=== PATIENT | female | born 1950 | race Caucasian/White ===

== ENCOUNTER 2018-01-01 11:07 | Outpatient (CLI) | payer MEDICARE, BC ==
--- NOTE | 2018-01-06 12:58 | Mammography Report ---
DIGITAL SCREENING MAMMOGRAM: 01/01/2018 CLINICAL INDICATION: A 67-year-old nulliparous patient, for screening. COMPARISON: 10/2015, 10/2014, 10/2013, 10/2012. TECHNIQUE: Routine CC and MLO projections were obtained of the breasts. FINDINGS: The breasts again demonstrate heterogeneously dense fibroglandular parenchyma bilaterally. A few punctate, typically benign calcifications are present. No suspicious masses, clustered microcalcifications, or regions of architectural distortion are identified. IMPRESSION: BENIGN FINDINGS. RECOMMENDATION: ROUTINE ANNUAL SCREENING UNLESS OTHERWISE CLINICALLY INDICATED. BIRADS CATEGORY 2-BENIGN FINDINGS. STANDARD QUALIFYING STATEMENTS: 1. This examination was reviewed with the aid of Computer-Aided Detection (CAD). 2. A negative or benign imaging report should not delay biopsy if clinically suspicious findings are present. Consider surgical consultation if warranted. More than 5% of cancers are not identified by imaging. 3. Dense breasts may obscure an underlying neoplasm. TD: 01/06/2018 12:56
== END 2018-01-01 11:08 | disposition home or self-care (01) ==
LOC: DI 11:07
PROVIDERS: ATTEND Family Medicine
DX: Z12.31 Encounter for screening mammogram for malignant neoplasm of breast (principal)
CPT/HCPCS: 77067

== ENCOUNTER 2019-03-07 15:54 | Outpatient (CLI) | payer MEDICARE, BC ==
--- NOTE | 2019-03-20 09:22 | Mammography Report ---
Reason: SCREENING MAMMOGRAM Procedure Date: 03/07/2019 Accession Number: [id number] / [id number] Procedure: [facility] - Screening Mammo w/Saúl CPT Code: FULL RESULT: EXAM: Screening Mammo w/Saúl DATE: 03/07/2019 4:30 PM CLINICAL HISTORY: Screening encounter. History of nulliparity. Greater than 20 years of hormone therapy. TECHNIQUE: (B) - Bilateral CC and MLO views were obtained. COMPARISON: 01/01/2018 through 10/31/2012. PARENCHYMAL PATTERN: (D) - The breast(s) demonstrate(s) heterogeneously dense fibroglandular parenchyma. FINDINGS: There are coarse typically benign calcifications. There are no suspicious masses, calcifications, or areas of distortion. IMPRESSION: Benign findings. BI-RADS category 2. RECOMMENDATION: (ANNUAL) - Recommend routine annual screening mammography. BI-RADS CATEGORY: (2) - Benign Findings. STANDARD QUALIFYING STATEMENTS: 1. This examination was not reviewed with the aid of Computer-Aided Detection (CAD). 2. A negative or benign imaging report should not preclude biopsy if clinically suspicious findings are present. 3. Dense breasts may obscure an underlying neoplasm. 4. This examination was reviewed with the aid of 3D breast imaging (tomosynthesis).
== END 2019-03-07 15:55 | disposition home or self-care (01) ==
LOC: DI 15:54
DX: Z12.31 Encounter for screening mammogram for malignant neoplasm of breast (principal)
CPT/HCPCS: 77063; 77067

== ENCOUNTER 2019-11-15 18:45 | Emergency (ER) | payer MEDICARE, BC ==
[2019-11-15] MEDS ORDERED: BUFFERED LIDOCAINE 10 ML SYRINGE SUBQ STA (19:30)
[2019-11-15] MEDS ORDERED: TETANUS/DIPHTHERIA/PERTUSSIS 0.5 ML SYRINGE IM ONE (19:30)
[2019-11-15] MEDS ORDERED: AMOX/CLAV 875 MG/125 MG TABLET PO STA (19:31)
--- NOTE | 2019-11-15 19:31 | ED Physician Documentation ---
PD HPI LOWER EXT INJURY - Stated complaint Stated Complaint: LT THUMB PAIN/SWELLING - Chief complaint Chief Complaint: Ext Problem - History obtained from History obtained from: Patient (69-year-old woman with unknown tetanus status may have gotten a splinter in her left thumb a few days ago and now has a tender swollen tip of the thumb. 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 - Present Medications Home Medications: Ambulatory Orders Medication Instructions Recorded Confirmed Ascorbic Acid [Vitamin C] 1,000 mg PO DAILY 04/29/18 10/27/19 Calcium Carbonate [Calcium] 600 mg PO DAILY 04/29/18 10/27/19 Estradiol 0.05 mg Patch [Climara 0.05 mg TOP ONCE 04/29/18 10/27/19 0.05 mg] Lactobacillus Acidophilus 1 each PO DAILY 04/29/18 10/27/19 [Probiotic Acidophilus] Nortriptyline HCl 10 mg PO QPM 04/29/18 10/27/19 Lutz-3/Dha/Epa/Fish Oil [Fish Oil 1 cap PO DAILY 04/29/18 10/27/19 1,000 mg Softgel] Red Yeast Rice 600 mg PO BID 04/29/18 10/27/19 Sertraline [Zoloft] 50 mg PO DAILY 04/29/18 10/27/19 Trazodone HCl 100 mg PO QPM 04/29/18 10/27/19 Amox/Clav 875/125 [Augmentin] 1 each PO Q12H #20 tablet 11/15/19 Hydrocodone/Acetaminophen 1 - 2 each PO Q6H PRN #10 tablet 11/15/19 [Hydrocodon-Acetaminophen 5-325] - Allergies Allergies/Adverse Reactions: Allergies Allergy/AdvReac Type Severity Reaction Status Date / Time meperidine [From Demerol] AdvReac Unknown Verified 11/15/19 18:53 - Social History Does the pt smoke?: No Smoking Status: Never smoker Does the pt drink ETOH?: Yes ETOH Use: Wine, Liquor Does the pt have substance abuse?: No - Immunizations Immunizations are current?: Yes - POLST Patient has POLST: No PD ED PE NORMAL - Vitals Vital signs reviewed: Yes - General General: Alert and oriented X 3, No acute distress - Extremities Extremities: Other (She has appointed felswapna on the pulp of the left thumb with mild surrounding cellulitis) - Neuro Neuro: Alert and oriented X 3, Normal speech Results - Vitals Vitals: Vital Signs - 24 hr 11/15/19 18:53 Temperature 36.5 C Heart Rate 94 Respiratory 16 Rate Blood Pressure 154/86 H O2 Saturation 100 Oxygen O2 Source Room air Procedures - Abscess I&D (location) L thumb Preparation: Chlorhexadine, Lidocaine 1% (Digital block with buffered lidocaine) Incision: Incised with scalpel, Purulent drainage, Loculations broken, Culture obtained. No: Packed Other: Pt tolerated well, Antibiotic prescribed Departure - Departure Disposition: 01 Home, Self Care Clinical Impression: Felon of finger of left hand Condition: Good Record reviewed to determine appropriate education?: Yes Instructions: ED Abscess IandD Prescriptions: Amox/Clav 875/125 [Augmentin] 1 each PO Q12H #20 tablet Hydrocodone/Acetaminophen [Hydrocodon-Acetaminophen 5-325] 1 - 2 each PO Q6H PRN #10 tablet PRN Reason: pain Comments: We are performing a wound culture, the results should be done in 48-72 hours. If antibiotic change is necessary we will call you. Return if worse in the meantime, especially if you develop increased pain, fevers, cannot keep down the medication. Otherwise follow-up with your physician in approximately 2-3 days. Your blood pressure was elevated today on check into the emergency department. This does not mean that you have hypertension, it is a common phenomenon to come to the emergency department and have elevated blood pressure. I recommend that you see your primary care physician within the week to have it rechecked when you are feeling better.
[2019-11-15] MEDS ORDERED: HYDROcod/ACET 5/325 Prepack 4 PO STA (19:54)
[2019-11-15 20:04] VITALS: BP 135/87
== END 2019-11-15 20:04 | disposition home or self-care (01) ==
LOC: ED 18:45
DX: L03.012 Cellulitis of left finger (principal); R03.0 Elevated blood-pressure reading, without diagnosis of hypertension; Z23 Encounter for immunization
CPT/HCPCS: 26011; 87070; 87181; 87205; 90471; 90715; 99283; A9270

== ENCOUNTER 2019-11-17 18:27 | Emergency (ER) | payer MEDICARE, BC ==
[~2019-11-17 18:27] MED LIST: CEPHALEXIN 250 MG Prepack 8 CAP BOTTLE PO ONE
[2019-11-17 18:36] VITALS: BP 142/91
--- NOTE | 2019-11-17 18:42 | ED Physician Documentation ---
PD HPI UPPER EXT INJURY - Stated complaint Stated Complaint: LT THUMB F/U - Chief complaint Chief Complaint: Laceration - History obtained from History obtained from: Patient - History of Present Illness Location: Left (I saw her a few days ago for a felon, I called her tonight because the culture grew staph and I was not sure if Augmentin would be the appropriate choice and I wanted to switch her to Keflex. She is not worse per se but she is not better either. 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 - Present Medications Home Medications: Ambulatory Orders Medication Instructions Recorded Confirmed Ascorbic Acid [Vitamin C] 1,000 mg PO DAILY 04/29/18 10/27/19 Calcium Carbonate [Calcium] 600 mg PO DAILY 04/29/18 10/27/19 Estradiol 0.05 mg Patch [Climara 0.05 mg TOP ONCE 04/29/18 10/27/19 0.05 mg] Lactobacillus Acidophilus 1 each PO DAILY 04/29/18 10/27/19 [Probiotic Acidophilus] Nortriptyline HCl 10 mg PO QPM 04/29/18 10/27/19 Nisula-3/Dha/Epa/Fish Oil [Fish Oil 1 cap PO DAILY 04/29/18 10/27/19 1,000 mg Softgel] Red Yeast Rice 600 mg PO BID 04/29/18 10/27/19 Sertraline [Zoloft] 50 mg PO DAILY 04/29/18 10/27/19 Trazodone HCl 100 mg PO QPM 04/29/18 10/27/19 Amox/Clav 875/125 [Augmentin] 1 each PO Q12H #20 tablet 11/15/19 Hydrocodone/Acetaminophen 1 - 2 each PO Q6H PRN #10 tablet 11/15/19 [Hydrocodon-Acetaminophen 5-325] Cephalexin [Keflex] 500 mg PO Q6H #40 capsule 11/17/19 - Allergies Allergies/Adverse Reactions: Allergies Allergy/AdvReac Type Severity Reaction Status Date / Time meperidine [From Demerol] AdvReac Unknown Verified 11/17/19 18:31 - Social History Does the pt smoke?: No Smoking Status: Never smoker Does the pt drink ETOH?: Yes Does the pt have substance abuse?: No - Immunizations Immunizations are current?: Yes - POLST Patient has POLST: No PD ED PE NORMAL - Vitals Vital signs reviewed: Yes - General General: Alert and oriented X 3, No acute distress - Extremities Extremities: Other (Cellulitis of the pulp of the left thumb to the interphalangeal joint with full range of motion, no fluctuance or area to incise at this point.) - Neuro Neuro: Alert and oriented X 3, Normal speech Results - Vitals Vitals: Vital Signs - 24 hr 11/17/19 18:31 Temperature 36.9 C Heart Rate 86 Respiratory 16 Rate Blood Pressure 142/91 H O2 Saturation 100 Oxygen O2 Source Room air PD MEDICAL DECISION MAKING - ED course ED course: She looks like she is slowly improving but we changed her antibiotic to Keflex. She was given to Keflex prepacks given the time of night on , note that they were probably pulled on the prior account and a prescription to fill morning. Departure - Departure Disposition: Home, Self Care Clinical Impression: Felon of finger of left hand Condition: Good Record reviewed to determine appropriate education?: Yes Prescriptions: Cephalexin [Keflex] 500 mg PO Q6H #40 capsule Comments: If not improving in 36 to 48 hours return for reevaluation, anytime if worsening or if running a fever. Follow-up with your doctor Saturday as scheduled.
== END 2019-11-17 18:48 | disposition home or self-care (01) ==
LOC: ED 18:27
DX: L03.012 Cellulitis of left finger (principal); B95.8 Unspecified staphylococcus as the cause of diseases classified elsewhere

== ENCOUNTER 2019-11-26 10:44 | Outpatient (CLI) | payer MEDICARE, BC ==
--- NOTE | 2019-11-26 13:21 | XRAY Report ---
Reason: LEFT THUMB ABSCESS Procedure Date: 11/26/2019 Accession Number: [id number] / [id number] Procedure: WCP - Finger(s) LT CPT Code: Final Report FULL RESULT: EXAM: LEFT FIRST DIGIT RADIOGRAPHY EXAM DATE: 11/26/2019 10:44 AM. CLINICAL HISTORY: Left thumb abscess. COMPARISON: None. TECHNIQUE: 3 views. FINDINGS: Bones: Normal. No fracture or bone lesion. Joints: Normal. No subluxations. Soft Tissues: Normal. No soft tissue swelling. IMPRESSION: No acute or subacute osseous injury is detected. RADIA
== END 2019-11-26 23:59 | disposition home or self-care (01) ==
LOC: DI.WCP 10:44
PROVIDERS: ATTEND Family Medicine
DX: L02.512 Cutaneous abscess of left hand (principal)
CPT/HCPCS: 73140

== ENCOUNTER 2019-11-27 14:44 | Emergency (ER) | payer MEDICARE, BC ==
[2019-11-27 15:04] VITALS: BP 134/87
[2019-11-27] MEDS ORDERED: CETIRIZINE 10 MG TABLET PO STA (16:02)
[2019-11-27] MEDS ORDERED: predniSONE 20 MG TABLET PO STA (16:02)
--- NOTE | 2019-11-27 16:06 | ED Physician Documentation ---
PD HPI SKIN - Stated complaint Stated Complaint: FULL BODY RASH - Chief complaint Chief Complaint: Wound - History obtained from History obtained from: Patient - History of Present Illness Pain level max: 0 Pain level now: 0 Location: [place] Quality / character: Itchy Associated symptoms: No: Fever Contributing factors: Exposed to medication (keflex) - Additional information Additional information: 17-year-old female states that she was taking cephalexin for a finger infection. Started to have a rash. Stopped this. Saw her doctor yesterday. Rash is continued to progress. No difficulty breathing. Nothing makes it better or worse. 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 - Present Medications Home Medications: Ambulatory Orders Medication Instructions Recorded Confirmed Ascorbic Acid [Vitamin C] 1,000 mg PO DAILY 04/29/18 10/27/19 Calcium Carbonate [Calcium] 600 mg PO DAILY 04/29/18 10/27/19 Estradiol 0.05 mg Patch [Climara 0.05 mg TOP ONCE 04/29/18 10/27/19 0.05 mg] Lactobacillus Acidophilus 1 each PO DAILY 04/29/18 10/27/19 [Probiotic Acidophilus] Nortriptyline HCl 10 mg PO QPM 04/29/18 10/27/19 Wirt-3/Dha/Epa/Fish Oil [Fish Oil 1 cap PO DAILY 04/29/18 10/27/19 1,000 mg Softgel] Red Yeast Rice 600 mg PO BID 04/29/18 10/27/19 Sertraline [Zoloft] 50 mg PO DAILY 04/29/18 10/27/19 Trazodone HCl 100 mg PO QPM 04/29/18 10/27/19 Amox/Clav 875/125 [Augmentin] 1 each PO Q12H #20 tablet 11/15/19 Hydrocodone/Acetaminophen 1 - 2 each PO Q6H PRN #10 tablet 11/15/19 [Hydrocodon-Acetaminophen 5-325] Cephalexin [Keflex] 500 mg PO Q6H #40 capsule 11/17/19 predniSONE [Prednisone] 20 mg PO DAILY #5 tablet 11/27/19 - Allergies Allergies/Adverse Reactions: Allergies Allergy/AdvReac Type Severity Reaction Status Date / Time cephalexin Allergy Rash Verified 11/27/19 15:05 meperidine [From Demerol] AdvReac Unknown Verified 11/27/19 15:04 - Social History Does the pt smoke?: No Smoking Status: Never smoker Does the pt drink ETOH?: Yes Does the pt have substance abuse?: No - Immunizations Immunizations are current?: Yes - POLST Patient has POLST: No PD ED PE NORMAL - Vitals Vital signs reviewed: Yes - General General: Alert and oriented X 3, No acute distress - HEENT HEENT: Moist mucous membranes, Pharynx benign - Neck Neck: Supple, no meningeal sign - Cardiac Cardiac: RRR - Respiratory Respiratory: No respiratory distress, Clear bilaterally, Other (No stridor or wheezing) - Abdomen Abdomen: Soft, Non tender, Non distended - Derm Derm: Other (Diffuse maculopapular exanthem. Blanches easily.) - Neuro Neuro: Alert and oriented X 3 Results - Vitals Vitals: Vital Signs - 24 hr 11/27/19 15:01 Temperature 36.5 C Heart Rate 98 Respiratory 16 Rate Blood Pressure 134/87 H O2 Saturation 100 Oxygen O2 Source Room air PD MEDICAL DECISION MAKING - ED course Complexity details: considered differential, d/w patient ED course: Patient with what appears to be an allergic reaction to Keflex. We will place her on a small dose of steroids for home. Patient is well-appearing, nontoxic. Afebrile. Patient counseled regarding signs and symptoms for which I believe and urgent re-evaluation would be necessary. Patient with good understanding of and agreement to plan and is comfortable going home at this time This document was made in part using voice recognition software. While efforts are made to proofread this document, sound alike and grammatical errors may occur. Departure - Departure Disposition: 01 Home, Self Care Clinical Impression: Allergic reaction Qualifiers: Encounter type: initial encounter Qualified Code(s): T78.40XA - Allergy, u nspecified, initial encounter Condition: Good Instructions: ED Drug React Allergic Follow-Up: Stephanie Burton DO [Primary Care Provider] - Within 1 week Prescriptions: predniSONE [Prednisone] 20 mg PO DAILY #5 tablet Comments: Use the steroids as prescribed. Return if you worsen. Follow-up with your doctor as needed for further care.
== END 2019-11-27 16:12 | disposition home or self-care (01) ==
LOC: ED 14:44
DX: L27.0 Generalized skin eruption due to drugs and medicaments taken internally (principal); T36.1X5A Adverse effect of cephalosporins and other beta-lactam antibiotics, initial encounter
CPT/HCPCS: 99282; 99284; A9270; J7512

== ENCOUNTER 2020-01-01 08:00 | Outpatient (CLI) | payer MEDICARE, BC ==
[2020-01-01 13:20] LABS: CHOL/HDL RATIO 4.8 (<4.4); CHOLESTEROL 129 mg/dL; HDL CHOLESTEROL 27 mg/dL; LDL CHOLESTEROL,CALCULATED 82 mg/dL; VLDL CHOLESTEROL 20 mg/dL
== END 2020-01-01 23:59 | disposition home or self-care (01) ==
LOC: LAB.WCP 08:00
PROVIDERS: ATTEND Family Medicine
DX: E78.5 Hyperlipidemia, unspecified (principal)
CPT/HCPCS: 36415; 80061; 83721

== ENCOUNTER 2020-01-06 08:00 | Outpatient (CLI) | payer MEDICARE, BC ==
[2020-01-06 18:28] LABS: BASOPHILS % (AUTO) 0.2 %; HGB - HEMOGLOBIN 8.3 g/dL (12.0-16.0); LYMPHOCYTES % (AUTO) 77.4 %; MEAN CORPUSCULAR HEMOGLOBIN 31.1 pg (27.0-31.0); MEAN PLATELET VOLUME 9.1 fL (7.9-10.8); MONOCYTES % (AUTO) 10.5 %; NEUTROPHILS % (AUTO) 11.7 %; PLT - PLATELET COUNT 192 10^3/uL (130-450); RED BLOOD COUNT 2.67 10^6/uL (4.20-5.40); RED CELL DISTRIBUTION WIDTH 16.1 % (12.0-15.0); WHITE BLOOD COUNT 21.8 x10^3/uL (4.8-10.8)
[2020-01-06 18:29] LABS: BILIRUBIN,URINE NEGATIVE (NEGATIVE); GLUCOSE, URINE (UA) NEGATIVE (NEGATIVE); KETONES,URINE (UA) NEGATIVE (NEGATIVE); LEUKOCYTE ESTERASE, URINE NEGATIVE (NEGATIVE); NITRITE,URINE NEGATIVE (NEGATIVE); OCCULT BLOOD,URINE SMALL (NEGATIVE); PROTEIN,URINE NEGATIVE (NEGATIVE); UROBILINOGEN,URINE 0.2 (NORMAL) E.U./dL (NORMAL)
[2020-01-06 18:31] LABS: ABNORMAL LYMPHS % (MANUAL) 0 %; BAND NEUTROPHILS % (MANUAL) 0 %
[2020-01-06 18:45] LABS: CLARITY,URINE CLEAR (CLEAR)
[2020-01-06 18:46] LABS: ALBUMIN 3.4 g/dL (3.2-5.5); ALBUMIN/GLOBULIN RATIO 1.1 (1.0-2.2); BACTERIA,URINE None Seen /HPF (None Seen); BILIRUBIN,TOTAL 0.6 mg/dL (0.2-1.0); CALCIUM 10.2 mg/dL (8.5-10.3); CREATININE 1.2 mg/dL (0.4-1.0); SQUAMOUS EPITHELIAL CELL,UR NONE SEEN (<= Few); TOTAL PROTEIN 6.5 g/dL (6.7-8.2)
[2020-01-06 19:02] LABS: DIFFERENTIAL COMMENT MANUAL DIFFERENTIAL; LYMPHOCYTES # (MANUAL) 18.7 10^3/uL (1.5-3.5); LYMPHOCYTES % (MANUAL) 86 %; MONOCYTES # (MANUAL) 0.7 10^3/uL (0.0-1.0); PLATELET ESTIMATE, MANUAL NORMAL (130-450,000) (NORMAL); PLATELET MORPHOLOGY NORMAL APPEARANCE (NORMAL); RBC MORPHOLOGY (MULTIPLE) 1+ ANISOCYTOSIS (NORMAL)
== END 2020-01-06 23:59 | disposition home or self-care (01) ==
LOC: LAB.WCP 08:00
PROVIDERS: ATTEND Family Medicine
DX: H02.845 Edema of left lower eyelid (principal); I73.00 Raynaud's syndrome without gangrene; C91.10 Chronic lymphocytic leukemia of B-cell type not having achieved remission
CPT/HCPCS: 36415; 80053; 81001; 84443; 85025

== ENCOUNTER 2020-04-01 11:42 | Outpatient (CLI) | payer MEDICARE, BC ==
--- NOTE | 2020-04-02 09:45 | XRAY Report ---
Reason: DYSPNEA ON EXTERTION Procedure Date: 04/01/2020 Accession Number: [id number] / [id number] Procedure: WCP - Chest 2 View X-Ray CPT Code: 64021 Final Report FULL RESULT: EXAM: CHEST RADIOGRAPHY EXAM DATE: 04/01/2020 11:42 AM. CLINICAL HISTORY: DYSPNEA ON EXERTION. COMPARISON: None. TECHNIQUE: 2 views. FINDINGS: Lungs/Pleura: No focal opacities evident. No pleural effusion. No pneumothorax. Normal volumes. Mediastinum: Heart and mediastinal contours are unremarkable. Other: No acute osseous abnormality. There are mild degenerative disk changes of the thoracic spine. IMPRESSION: No acute cardiopulmonary abnormality. RADIA
== END 2020-04-01 11:43 | disposition home or self-care (01) ==
LOC: DI.WCP 11:42
PROVIDERS: ATTEND Family Medicine
DX: R06.09 Other forms of dyspnea (principal)
CPT/HCPCS: 71046

== ENCOUNTER 2020-04-01 12:26 | Outpatient (CLI) | payer MEDICARE, BC ==
[2020-04-01 18:37] LABS: ALBUMIN 3.5 g/dL (3.2-5.5); ALBUMIN/GLOBULIN RATIO 0.8 (1.0-2.2); BILIRUBIN,TOTAL 1.4 mg/dL (0.2-1.0); CALCIUM 10.8 mg/dL (8.5-10.3); CREATININE 1.8 mg/dL (0.4-1.0); TOTAL PROTEIN 7.8 g/dL (6.7-8.2)
[2020-04-01 18:53] LABS: FERRITIN 47.8 ng/mL (11.0-306.8)
== END 2020-04-01 23:59 | disposition home or self-care (01) ==
LOC: LAB.WCP 12:26
PROVIDERS: ATTEND Family Medicine
DX: D64.9 Anemia, unspecified (principal); R06.09 Other forms of dyspnea; R00.0 Tachycardia, unspecified
CPT/HCPCS: 36415; 80053; 82607; 82728; 83540; 83880; 84443; 84466; 85027

== ENCOUNTER 2020-04-13 14:14 | Outpatient (CLI) | payer MEDICARE, BC ==
[2020-04-13] MEDS ORDERED: IOVERSOL 320 50 ML VIAL PO ONE (15:06)
--- NOTE | 2020-04-14 14:29 | CT Report ---
Reason: DYSPNEA ON EXERTION Procedure Date: 04/13/2020 Accession Number: [id number] / [id number] Procedure: CT - CHEST WO CPT Code: Final Report FULL RESULT: EXAM: CT CHEST EXAM DATE: 04/13/2020 02:57 PM. CLINICAL HISTORY: Dyspnea on exertion. History of CLL. COMPARISONS: CT ABDOMEN/PELVIS W/O 04/13/2020 2:57 PM CHEST 2 VIEW 04/01/2020 11:14 AM.. TECHNIQUE: Routine helical CT imaging was performed through the chest. IV contrast: None. Reconstructions: Coronal and sagittal. In accordance with CT protocol optimization, one or more of the following dose reduction techniques were utilized for this exam: automated exposure control, adjustment of mA and/or KV based on patient size, or use of iterative reconstructive technique. FINDINGS: Lungs/Pleura: There is mild scarring at the bilateral lung apices. Mild diffuse bilateral centrilobular emphysema is present. There is a 3 mm calcified granuloma in the posterior-superior aspect of the right upper lobe (series 5 image 64). There are areas of patchy airspace opacities and interstitial opacities at the bilateral lung bases. No bronchial thickening or edema. Pulmonary vasculature is normal. No pericardial or pleural effusion. No pneumothorax. Mediastinum: Heart size is normal. Coronary artery calcifications are present. The great vessels are normal in caliber. There is minimal atherosclerotic calcification of the aortic arch and descending thoracic aorta. No definite mediastinal or hilar adenopathy apparent on this noncontrast exam. There are multiple enlarged lymph nodes in the bilateral axillary regions. The largest wine sales representative lymph node in the right axillary region measures 3.2 x 1.3 cm (series 4 image 36). The largest wine sales representative lymph node in the left axillary region measures 2.1 x 1.3 cm (series 4 image 25). Bones: No lytic or sclerotic bone lesion. There are mild degenerative disk changes of the thoracic spine. No fracture or other acute osseous abnormality. Visualized Abdomen: The partially visualized spleen is enlarged. There is probable retroperitoneal adenopathy. Please see separately reported CT of the abdomen and pelvis without contrast for additional evaluation. Other: None. IMPRESSION: 1. Areas of mild patchy airspace opacity and interstitial opacities at the bilateral lung bases. This may be due to chronic aspiration, scarring, atelectasis, or infection. 2. Mild diffuse bilateral centrilobular emphysema. 3. Bilateral enlarged axillary lymph nodes. No mediastinal or hilar adenopathy apparent on this noncontrast exam. 4. Splenomegaly and probable retroperitoneal adenopathy in the upper abdomen. Please see separately reported CT of the abdomen and pelvis without contrast for additional evaluation. RADIA
== END 2020-04-13 14:15 | disposition home or self-care (01) ==
LOC: DI 14:14
PROVIDERS: ATTEND Nurse Practitioner Family
DX: J43.2 Centrilobular emphysema (principal); R06.00 Dyspnea, unspecified; R59.0 Localized enlarged lymph nodes; R16.1 Splenomegaly, not elsewhere classified
CPT/HCPCS: 71250

== ENCOUNTER 2020-05-14 14:31 | Outpatient (CLI) | payer MEDICARE, BC ==
--- NOTE | 2020-05-14 16:12 | Ultrasound Report ---
PROCEDURE: Retroperitoneal INDICATIONS: RENAL INSUFFICENCY TECHNIQUE: Real-time scanning was performed of the kidneys and bladder, with image documentation. COMPARISON: CT of abdomen and pelvis dated 04/13/2020 FINDINGS: Kidneys: Kidneys are normal in size. Right kidney measures 10.4 cm long; left kidney measures 12.8 cm long. Right renal cortical thickness is 1.4 cm; left renal cortical thickness is 1.0 cm. Renal c ortical echotexture is normal. No hydronephrosis or nephrolithiasis. No suspicious solid mass lesio ns. Bladder: Pre-void bladder volume is 79 mL. Post-void residual is 2.5 mL. Pre-void images demonstra te no intraluminal masses or stones. On pre-void images, bilateral ureteral jets are noted with colo r Doppler interrogation. (Of note, ureteral jets may not be detectable in up to 25% of cases due to insufficient differences in specific gravity between ureteral and bladder urine). Miscellaneous: No free pelvic fluid. Splenomegaly is seen measures up to 24.7 cm in length. IMPRESSION: 1. Slightly smaller right kidney compared to the left side. Mild left renal cortical thinning. No hyd ronephrosis. No gross solid appearing renal lesion. 2. No gross abnormality is seen in partially distended urinary bladder. 3. Splenomegaly. Reviewed by: Fabien Long MD on 05/14/2020 4:11 PM PDT Approved by: Fabien Long MD on 05/14/2020 4:11 PM PDT Station ID: [id number]
== END 2020-05-14 14:32 | disposition home or self-care (01) ==
LOC: DI 14:31
PROVIDERS: ATTEND Physician Assistant
DX: R16.1 Splenomegaly, not elsewhere classified (principal)
CPT/HCPCS: 76770

== ENCOUNTER 2020-05-19 07:00 | Outpatient (CLI) | payer MEDICARE, BC | END 2020-05-19 23:59 | disposition home or self-care (01) | LOC: LAB.R 07:00 | PROVIDERS: ATTEND Physician Assistant Medical | DX: N89.9 Noninflammatory disorder of vagina, unspecified (principal) | CPT/HCPCS: 81599; 87255 ==

== ENCOUNTER 2020-05-24 09:16 | Outpatient (CLI) | payer MEDICARE, BC ==
--- NOTE | 2020-05-24 17:52 | CONSULTATION NOTE ---
Palliative Care Consultation - Referral Referring Provider: Charmaine Islas PA-C Time of Visit: [id number] Referral setting: [facility] [place] Referral Reason: Advanced Care Planning /Anorexia/CLL - Information Sources Records reviewed: RN notes reviewed, Previous records reviewed History/Review of Systems obtained from: Patient Exam limitations: No limitations - History of Present Illness Brief History of Present Illness: This is a 70-year-old woman with chronic lymphocytic leukemia with anemia, lymphadenopathy, and splenomegaly. She has been having worsening anemia, will be receiving a unit of packed red blood cells , for hemoglobin of 7.9. She does have significant symptomology with this, increased fatigue, activity intolerance, and intermittent shortness of breath. She also has subacute renal insufficiency with hypercalcemia, of unknown etiology, they are working her up for possible further concerns of multiple myeloma. She is receiving a liter of fluid today. She was originally diagnosed with CLL in 2014, up to this point in time she had been on monitoring only until she presented with worsening counts. She will be starting treatment ibrutinib when approved by insurance. Patient presents with high symptom burden of fatigue, RLS, anorexia/weight loss, deconditioning and functional decline. Patient has recently lost her , to met esophageal cancer, he was on hospice. She has 1 brother in [place], who is having health problems as well. She does have a good friend from [place], and other friends scattered through the area, but very little community support. She has been dealing with wrapping up affairs, and in the context of this she is wanting to update her POLST, and discuss advance care planning. Palliative care to meet with patient regarding symptom management, advanced care planning, and coordination of care. 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 But she does not live nearby, she has been trying to finish the house, hiring various components and hopes to get her affairs in order. She does have a brother in [place], she has a very good friend that she knows from 1982, who is retired RN who provides ongoing support. She would be available to come out if she had anything catastrophic happen. 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 She is trying to get this finished up. Family History - Family History Family History: Mother: , Cancer (lung), Father: Medications/Allergies - Medications Home Medications: Ambulatory Orders Medication Instructions Recorded Confirmed Ascorbic Acid [Vitamin C] 1,000 mg PO DAILY 04/29/18 05/25/20 Estradiol 0.05 mg Patch [Climara 0.05 mg TOP ONCE 04/29/18 05/25/20 0.05 mg] Sertraline [Zoloft] 50 mg PO DAILY 04/29/18 05/25/20 Albuterol Sulf [Ventolin Hfa 2 puffs INH QID PRN 05/25/20 05/25/20 Inhaler] Mirtazapine 15 mg PO QPM MDD start at 7.5 mg 05/25/20 05/25/20 - Allergies Allergies/Adverse Reactions: Allergies Allergy/AdvReac Type Severity Reaction Status Date / Time cephalexin Allergy Rash Verified 05/24/20 09:41 meperidine [From Demerol] AdvReac Unknown Verified 05/24/20 09:41 Review of Systems - Constitutional Constitutional: reports: Fatigue (worsening and limiting), Weight loss ( documented 156 12/02; today 127-30 pound wt. loss over 6 months). denies: Fever - Eyes Eyes: reports: Vision loss, Corrective lenses - Ears, Nose & Throat Ears, Nose & Throat: reports: Dry mouth - Cardiovascular Cardiovascular: reports: Palpitations, Exertional dyspnea, Decr. exercise tolerance - Respiratory Respiratory: reports: SOB at rest, SOB with exertion - Gastrointestinal Gastrointestinal: reports: Reflux/heartburn, Poor appetite, Early satiety - Genitourinary Genitourinary: reports: Other (on estrogen patch for hot flashes; continues related to intermittent symptoms; denies night sweats but gets "warm at night") - Musculoskeletal Musculoskeletal: reports: Stiffness, Muscle weakness, Other (severe right foot pain;) - Integumentary Integumentary: reports: Dryness - Neurological Neurological: reports: General weakness - Psychiatric Psychiatric: reports: Depression, Anxiety - Endocrine Endocrine: reports: Intolerance to cold - Hematologic/Lymphatic Hematologic/Lymphatic: reports: Anemia, Bruising - All Other Systems All Other Systems: reports: Reviewed and negative Physical Exam - Vital Signs Temperature: 97.6 C Pulse Rate: 111 Respiratory Rate: 18 Blood Pressure: 146/109 - Physical Exam General Appearance: positive: Alert, Mild distress Eyes Bilateral: positive: Other (significant periorbital edema) Neck: positive: Trachea midline Cardiovascular: positive: Tachycardia Respiratory: positive: Breath sounds nml, Diminished in bases. negative: Wheezes, Rales, Rhonchi Abdomen: positive: Other (concave/thin) Skin: positive: Cyanosis (hands and feet blue; has raynauds has been worsening over last few months) Extremities: positive: No pedal edema Neurologic/Psychiatric: positive: Oriented x3, Weakness, Depressed mood/affect, Flat affect Palliative Care - POLST Patient has POLST: Yes POLST Status: DNR, Selective Treatment (completed at time of visit) Pain: Location (Reports lower extremity pain, has significant RLS at night, has not been medicated for this. She reports her mom had L RLS as well. She is quite resistant to any medication related to this. It is fairly significant in fact down" horrid" does fluctuate. She also has some persistent pain in her ri) Tiredness/Fatigue: Severe (7-10) Drowsiness/Sedation: Mild (1-3) Nausea: None Anorexia: Moderate (4-6), Weight loss (30 pounds over 6 months) Dyspnea: Moderate (4-6) Depression: Mild (1-3) Anxiety: Mild (1-3) Feelings of wellbeing/Perceived Quality of Life: Fair, Worsening Sleep: Sleeps poorly, Variable sleep pattern Constipation: No Performance Status: Patient does live alone, she is challenged to keep up with all her IADLs, as well as ADLs. She does have to pace her activities, and is very frustrated with her limitations. - Palliative Care Discussion: Patient is still grieving her loss of her of 20 years, to metastatic esophageal cancer. She now feels very vulnerable, reports it is "bad timing" to be seriously ill. She is wanting to take care of all her affairs, as she is trying to wind up her 's. She wanted to have a conversation and update her POLST. She is familiar with palliative care from her 's journey. She does have a good friend in [place], who is a nurse, Lisa Wiseman, [phone], who she would like to have as her primary D POA. I did give her forms to fill out, to pick a primary and a backup, she will take care of this and get this back for her records. We also discussed what was important to her, she does not want prolonged suffering, pain, nor to be resuscitated but to allow natural if her time. We did fill out her POLST, with focus on quality of life, treat reversible conditions, and end-of-life a comfortable respectful at home. She does at baseline feel healthy overall, though is starting to have more symptom burden, had just met with the oncologist, and was thankful there was something not too toxic to treat her disease. She had seen her go through chemotherapy, and reflects wondering if it was all worth it in the end. She does feel like she has many friends and can reach out for emotional support, she does not have anyone nearby, and is trying to navigate in the context of COVID-19 restrictions. She does feel quite vulnerable, and recognizes her immune system is depressed. Results - Lab Results Lab results reviewed: Yes Lab and Imaging Results: BUN is 46, creatinine 1.9, GFR 26, calcium 11.7, total bili 1.5, total protein 9.2, globulin 5.9, WBC 24.8, hemoglobin 7.9, hematocrit 24.6. Impression and Recommendations - Palliative Care Impression: This is a clyde 70-year-old woman with known chronic lymphocytic leukemia with recent CT scan showing splenomegaly, lymphadenopathy, and increasing lymphocytosis noted. She has had increasing anemia, will be receiving transfusion this week. She is seeing a food science professor for her worsening renal insufficiency and hypercalcemia of unknown etiology. She is also being worked up for possible Multiple myeloma. She presents with moderate to high symptom burden, requesting help with advanced care planning, and request for palliative care referral for assistance. Palliative care to provide support for symptom management, advanced care planning, and anticipatory guidance. Recommendations/Counseling Done: 1. Anorexia/weight loss. This is multifactorial, including patient having trouble with fluids, is trying to push herself. Finding difficult of find things she likes to eat. Reports she has no appetite. Discussed her weight loss, strategies for increasing calories. Her was a cook, so missing that support. In agreement to try mirtazapine, for appetite stimulant as well as other symptoms. Will start at 7.5 mg for 1 week, then increase to 15. Instructed to discontinue trazodone, as will help with sleep, as well as nortriptyline for drug interactions. 2. Hypertension. Instructed patient to get blood pressure cuff, and monitor in preparation for her nephrology appointment 05/30. Recommended to keep a log, most likely will need blood pressure medication, will defer to nephrology. 3. Restless leg syndrome. Patient quite adverse to trying any standard medications, have used mirtazapine in the past with some success, hopefully this will be of support. 4. Insomnia. Patient has had difficulty sleeping, this is attributed both to the pain of her RLS, anxiety, and feeling poorly. Instructed take mirtazapine, this assists with sleep as well. 5. Advanced care planning. POLST was completed, record into [employer]. She will complete her D POA, she is working on finishing up her will and other documents. She does feel she has support if needed if her health declines further, her friend from [place] is a nurse and would be available. She is feeling somewhat overwhelmed with the limitations with COVID-19, otherwise would hire more assistance. We will follow-up if would like medical palliative care psych social worker to provide further support and or short-term planning and resources. Time Spent: 60 minutes with greater than 50% of this done in counseling regarding goals of care, symptom management, and anticipatory guidance.
== END 2020-05-24 09:17 | disposition home or self-care (01) ==
LOC: PC 09:16
PROVIDERS: ATTEND Nurse Practitioner Adult Health
DX: Z51.5 Encounter for palliative care (principal); C91.10 Chronic lymphocytic leukemia of B-cell type not having achieved remission; D63.0 Anemia in neoplastic disease; N28.9 Disorder of kidney and ureter, unspecified; E83.52 Hypercalcemia; G25.81 Restless legs syndrome; R63.0 Anorexia; I10 Essential (primary) hypertension; G47.00 Insomnia, unspecified; R60.0 Localized edema; J44.9 Chronic obstructive pulmonary disease, unspecified; R53.1 Weakness; R63.4 Abnormal weight loss; I73.00 Raynaud's syndrome without gangrene; Z79.899 Other long term (current) drug therapy; Z79.890 Hormone replacement therapy; Z63.4 Disappearance and death of family member; Z66 Do not resuscitate
CPT/HCPCS: 99205

== ENCOUNTER 2020-05-31 14:18 | Outpatient (CLI) | payer MEDICARE, BC ==
--- NOTE | 2020-06-01 05:03 | CONSULTATION NOTE ---
Palliative Care Follow Up - Referral Referring Provider: Dr. Marian Phoenix Time of Visit: THURSDAY 05/31 [id number] Referral setting: [facility] [place] Referral Reason: RLS/Insomnia/HTN - Information Sources Records reviewed: Previous records reviewed History/Review of Systems obtained from: Patient Exam limitations: No limitations - History of Present Illness Update Brief HPI Update: This is a 70-year-old woman with chronic lymphocytic leukemia with anemia, lymphadenopathy, and splenomegaly. 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 Patient had called secondary to worsening leg pain, severe insomnia, and presents today with significant hypertension of 160/110. She is here to get fluids, and does appear somewhat dry. She also appears quite exhausted and overwhelmed. She did see the club attendant yesterday, unfortunately did not get started on any medications, continues to have difficulty with eating, and will be starting her ibrutinib tomorrow. She is somewhat shocked at her portion of the cost, which is $2600, but will see how she responds before making any further decisions. Patient describes pain as significant in the context of more restless leg syndrome. Though it is sharp and shooting, also severe ache. Is worse at night than day. She has not found any relief. Previously she had intermittent RLS symptoms, like traveling on a plane, intermittent at night, and was controlled with ibuprofen. The hope was that with the mirtazapine, she may get some relief with this as well. She reports his with both legs, and at this point in time is unable to sleep, and would like some tools to work with her pain control. She is symptomatic with her high blood pressure, with headache, reports pressure around the back of her head traveling up to the top. She denies vision changes, but does present with periorbital edema, and feeling poorly overall. Social History - Living Situation Living arrangement: At home Living Situation: Alone Support System: Patient does live alone, she is recently , her at home on hospice a few months ago. She is still actively grieving appropriately. She has many friends who are quite supportive, but none live close. Is trying to navigate getting her affairs in order, and quite frustrated with the limitations of COVID-19 for being able to elicit her higher further help. Medications/Allergies - Medications Home Medications: Ambulatory Orders Medication Instructions Recorded Confirmed Ascorbic Acid [Vitamin C] 1,000 mg PO DAILY 04/29/18 06/01/20 Estradiol 0.05 mg Patch [Climara 0.05 mg TOP ONCE 04/29/18 06/01/20 0.05 mg] Sertraline [Zoloft] 50 mg PO DAILY 04/29/18 06/01/20 Albuterol Sulf [Ventolin Hfa 2 puffs INH QID PRN 05/25/20 06/01/20 Inhaler] Mirtazapine 15 mg PO QPM 05/25/20 06/01/20 Amlodipine Besylate 10 mg PO DAILY 06/01/20 06/01/20 LORazepam [Ativan] 0.5 mg PO Q8HR PRN 06/01/20 06/01/20 Valacyclovir HCl [Valtrex] 500 mg PO BID 06/01/20 06/01/20 oxyCODONE [Roxicodone] 5 mg PO Q4HR PRN 06/01/20 06/01/20 - Allergies Allergies/Adverse Reactions: Allergies Allergy/AdvReac Type Severity Reaction Status Date / Time cephalexin Allergy Rash Verified 05/24/20 09:41 meperidine [From Demerol] AdvReac Unknown Verified 05/24/20 09:41 Review of Systems - Constitutional Constitutional: reports: Fatigue, Weakness, Poor appetite, Weight loss. denies: Fever - Eyes Eyes: reports: Corrective lenses - Cardiovascular Cardiovascular: reports: Lightheadedness, Decr. exercise tolerance, Other (raynauds). denies: Chest pain, Edema - Respiratory Respiratory: reports: SOB with exertion. denies: Cough, SOB at rest - Gastrointestinal Gastrointestinal: reports: Poor appetite - Musculoskeletal Musculoskeletal: reports: Stiffness, Muscle weakness - Integumentary Integumentary: reports: Dryness - Neurological Neurological: reports: General weakness, Headache (more persistent) - Psychiatric Psychiatric: reports: Depression, Anxiety - Hematologic/Lymphatic Hematologic/Lymphatic: reports: Anemia (received one unit PRBCs last week), Recurrent infections (recent flare vag herpes) - All Other Systems All Other Systems: reports: Reviewed and negative Physical Exam - Vital Signs Temperature: 97.5 C Pulse Rate: 104 Respiratory Rate: 18 Blood Pressure: 160/110 - Physical Exam General Appearance: positive: Alert, Moderate distress, Anxious Eyes Bilateral: positive: Other (significant periorbital edema) Neck: positive: Trachea midline Cardiovascular: positive: Tachycardia Respiratory: positive: No respiratory distress, Rhonchi Abdomen: positive: Other (concave/thin) Skin: positive: Cyanosis (hands and feet blue; has raynauds has been worsening over last few months) Extremities: positive: No pedal edema Neurologic/Psychiatric: positive: Oriented x3, Weakness, Depressed mood/affect, Flat affect Palliative Care - POLST Patient has POLST: Yes POLST Status: DNR, Selective Treatment Pain: Pain worsening, Location (legs/ see HPI), Severity (8-10) Tiredness/Fatigue: Severe (7-10) Drowsiness/Sedation: Moderate (4-6) Nausea: Mild (1-3) Anorexia: Moderate (4-6) (Patient admits to difficulty with eating, and somewhat a grief reaction related to her emotional connection to food. Her had been the cook, this was something he often did for her and something they did together.) Dyspnea: Moderate (4-6) Depression: Severe (7-10) Anxiety: Moderate (4-6) Feelings of wellbeing/Perceived Quality of Life: Poor, Worsening Sleep: Sleeps poorly Performance Status: Patient has poor activity tolerance, as needed pace activity. She is able to attend to her ADLs, but is quite exhausted most of the time. She is quite frustrated she is unable to do many household tasks, and has very little support. - Palliative Care Discussion: Patient is quite overwhelmed today, feeling like there is too many parts to her care, and nobody putting all the pieces together. We did discuss in the context of this what she might need to feel more supported. She does admit to exhaustion is not able to sleep, and worried about her ongoing quality of life with given her high symptom burden. She does have a plan if things worsen as far as needing more support, and is trying to get all of her affairs in order, recognizing the seriousness of her current situation. Patient did complete POLST with DNA R and selective treatments last time. She will get her D POA notarized, primary D POA is Tuyet Wiseman though in [place] [phone]. Impression and Recommendations - Palliative Care Impression: This is a 70-year-old woman with CLL and high symptom burden, with worsening RLS, insomnia, and fatigue. She presents today with severe hypertension, and feeling overwhelmed. Palliative care to provide support for symptom management, coordination of care, and anticipatory guidance. Recommendations/Counseling Done: 1. Hypertension. Patient presents with symptomatic hypertension of headaches, increasing fatigue, and had seen nephrology yesterday. Phone call to Dr. Claus Luis Regarding the need to more urgently start her on hypertensive medication. His recommendation was amlodipine 10 mg daily, this was called into her pharmacy. He will follow-up with oncology regarding consideration of Depo shots, and coordination of care. Assisted patient in locating blood pressure cuff on [employer], she will take 2 times a day, and monitor. We will follow-up next week for adjustments. 2. Leg pain. I suspect this is multifactorial in origin, including exacerbation of her RLS symptoms. She has just initiated mirtazapine, sometimes this is helpful. Given the acuity of her pain, she does not want to try regular RLS medications, secondary to negative experiences with family members. We will go ahead and order oxycodone 5 mg 1 tab every 4 hours for acute breakthrough pain, she has been getting some relief in the past with ibuprofen. 3. Insomnia. Patient has difficulty sleeping, this is attributed to the pain of her RLS, her worsening anxiety, and feeling poorly. She has initiated the mirtazapine, she does not want a regular sleeping med, which would not be recommended given her current drug regimen. We will go ahead and order lorazepam 0.5 mg, for breakthrough anxiety and nighttime use. She has used this in the past without any adverse effects. 4. CLL. Her new medication is coming tomorrow. She has not had medication teaching. Follow-up with oncology team, they will provide that today so she can initiate. She is concerned regarding her portion of the cost, she has significant financial stressors with recent of her . She is willing though to give it a try and follow-up on response. 5. Depression. This is multifactorial, including appropriate grief response for recent loss of her , she does have some social support, will offer medical palliative care health social work professor in addition, at next visit. 6. Advanced care planning. POLST was completed with DNA R/selective treatments. She is finishing her will and other documents, she will complete her D POA she is to get that notarized and bring it in. She is expressing significant concerns and anxiety regarding her worsening symptom burden, and worsening health. Time Spent: 45 minutes with greater than 50% of this done in counseling regarding symptom management, coordination of care with nephrology and oncology, counseling regarding opioid safety and medication management.
== END 2020-05-31 14:19 | disposition home or self-care (01) ==
LOC: PC 14:18
PROVIDERS: ATTEND Nurse Practitioner Adult Health
DX: Z51.5 Encounter for palliative care (principal); C91.10 Chronic lymphocytic leukemia of B-cell type not having achieved remission; G25.81 Restless legs syndrome; I10 Essential (primary) hypertension; F32.9 Major depressive disorder, single episode, unspecified; Z66 Do not resuscitate
CPT/HCPCS: 99215

== ENCOUNTER 2020-06-07 12:03 | Outpatient (CLI) | payer MEDICARE, BC ==
--- NOTE | 2020-06-07 21:16 | CONSULTATION NOTE ---
Palliative Care Follow Up - Referral Referring Provider: Dr. Marian Phoenix Time of Visit: 1423-5828 Referral setting: [facility] – [place] Referral Reason: RLS/HTN/CLL/Goals of Care - Information Sources Records reviewed: Previous records reviewed History/Review of Systems obtained from: Patient Exam limitations: No limitations - History of Present Illness Update Brief HPI Update: This is a 70-year-old woman with chronic lymphocytic leukemia with anemia, lymphadenopathy, and splenomegaly. She also has subacute renal insufficiency with hypercalcemia of unknown etiology, and is getting further worked up regarding the any unique characteristics of her disease. She has continued to lose weight, feeling somewhat overwhelmed and depressed, she to get her new treatment but was a significant cost, and is concerned about being able to manage this longterm. She has felt quite tired, and fatigued, this is may be worsened some, but no other significant side effects. Patient is quite frustrated, feels somewhat disjointed as far as her overall care. She has presented with fairly significant hypertension, have started on amlodipine, in conjunction with the brass wind instrument maker. She feels there is been some delay in her work-up and getting things organized, as well as her high symptom burden. She is due to see her PCP this week, she is 125/81, still has intermittent headaches but much improved. She continues to be confused about how much protein, calcium she should have in her diet, with her hypercalcemia. She will be getting some Zometa today, it is coming down. Patient's most problematic symptoms have been related to her RLS, we did start in addition to her mirtazapine, oxycodone for severe pain, and Lorazepam for sleep if needed, as she did not want to trial a sleeping med. She has not needed to use it for the last 3 nights, oxycodone controlling the pain has improved her sleep cycle. She does though awake frequently, and has not felt rested for a long period of time. She is having a lot of angst overall. She denies feeling suicidal, but is somewhat resigned and concerned about the seriousness of her illness. She is been encouraged by a friend to get a second opinion, we did discuss in the context of this is not unusual for patients to have a follow-up, particularly with her frustration, can confirm her current plan, or provide other options if needed her oncologist did provide a second option if unable to continue on her current medications. Social History - Living Situation Living arrangement: At home Living Situation: Alone Support System: Patient has been struggling, as she is only for for a few months, still acute grief regarding the loss of her , and with COVID-19, recent restrictions and limitations on support from her community. 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 Medications/Allergies - Medications Home Medications: Ambulatory Orders Medication Instructions Recorded Confirmed Ascorbic Acid [Vitamin C] 1,000 mg PO DAILY 04/29/18 06/01/20 Estradiol 0.05 mg Patch [Climara 0.05 mg TOP ONCE 04/29/18 06/01/20 0.05 mg] Sertraline [Zoloft] 50 mg PO DAILY 04/29/18 06/01/20 Mirtazapine 15 mg PO QPM 05/25/20 06/07/20 Amlodipine Besylate 10 mg PO DAILY 06/01/20 06/07/20 LORazepam [Ativan] 0.5 mg PO Q8HR PRN 06/01/20 06/07/20 Valacyclovir HCl [Valtrex] 500 mg PO BID 06/01/20 06/07/20 oxyCODONE [Roxicodone] 5 mg PO Q4HR PRN 06/01/20 06/07/20 Allopurinol [Zyloprim] 300 mg PO BID 06/07/20 06/07/20 Aspirin [Aspirin EC] 81 mg PO DAILY 06/07/20 06/07/20 - Allergies Allergies/Adverse Reactions: Allergies Allergy/AdvReac Type Severity Reaction Status Date / Time cephalexin Allergy Rash Verified 05/24/20 09:41 meperidine [From Demerol] AdvReac Unknown Verified 05/24/20 09:41 Review of Systems - Constitutional Constitutional: reports: Fatigue, Fever, Malaise, Poor appetite, Weight loss (5 pounds). denies: Chills - Eyes Eyes: reports: Vision loss - Ears, Nose & Throat Ears, Nose & Throat: reports: Dry mouth - Cardiovascular Cardiovascular: reports: Lightheadedness, Exertional dyspnea, Decr. exercise tolerance - Respiratory Respiratory: reports: SOB with exertion. denies: SOB at rest - Gastrointestinal Gastrointestinal: reports: Poor appetite, Early satiety. denies: Nausea - Musculoskeletal Musculoskeletal: reports: Muscle aches, Stiffness, Muscle weakness - Integumentary Integumentary: reports: Dryness - Neurological Neurological: reports: General weakness - Psychiatric Psychiatric: reports: Depression, Anxiety. denies: Suicidal - Endocrine Endocrine: reports: Intolerance to cold - Hematologic/Lymphatic Hematologic/Lymphatic: reports: Anemia, Other (elevated WBC) - All Other Systems All Other Systems: reports: Reviewed and negative Physical Exam - Vital Signs Temperature: 37.7 C Pulse Rate: 102 Respiratory Rate: 18 O2 Saturation: 100 (ra @ rest) Blood Pressure: 125/81 - Physical Exam General Appearance: positive: Alert, Moderate distress, Anxious Eyes Bilateral: positive: Other (periorbital edema) Neck: positive: Trachea midline Cardiovascular: positive: Tachycardia Respiratory: positive: No respiratory distress Abdomen: positive: Other (concave/thin) Skin: positive: Cyanosis (hands and feet blue; has raynauds has been worsening over last few months) Extremities: positive: No pedal edema Neurologic/Psychiatric: positive: Oriented x3, Weakness, Depressed mood/affect, Flat affect Palliative Care - POLST Patient has POLST: Yes POLST Status: DNR, Selective Treatment Pain: Pain improved, Location (RLS; using one oxycodone 5 mg at night; has slept better x 3 nights;) Tiredness/Fatigue: Severe (7-10) Drowsiness/Sedation: Moderate (4-6) Nausea: None Anorexia: Severe (7-10) (not much improvement yet with Mirtazipine; just started Saturday full pill), Weight loss Dyspnea: Moderate (4-6) (with activity) Depression: Moderate (4-6) Anxiety: Moderate (4-6) Feelings of wellbeing/Perceived Quality of Life: Poor, Worsening Sleep: Sleep improved (has used the lorazepam with some success) Constipation: No Performance Status: Patient reports she is very weak, has poor activity tolerance. Has to pace herself. She is hoping to find her figure out someway to have housework done, she is nervous in the face of COVID-19. She is still driving herself, she has limited community support here, but has many friends who are checking on her from a far. - Palliative Care Discussion: Patient is somewhat resigned, to her the seriousness of her illness, she denies suicidality, but is experiencing depression and frustration. She has been getting her affairs in order, and completing all her documentation needed. She did finish her D POA. We did discuss the challenges of multiple specialists involved, and complications in trying to coordinate care. She had a similar experience with her , and measures somewhat her experience against that as far as concern for effectiveness of treatment in the context of quality of life. Patient has completed a POLST with DNA R and selective treatments, with her goals to focus on quality of life, does not want to prolong suffering, but is willing at this point to treat reversible conditions but at end-of-life would like a comfortable and respectful . Results - Lab Results Lab results reviewed: Yes Impression and Recommendations - Palliative Care Impression: This is a 70-year-old woman with CLL and high symptom burden, continues with weight loss, severe fatigue, has started on her new treatment regimen. She has had some improvement in her blood pressure, sleep, and RLS. Palliative care continue provide support for symptom management, and anticipatory guidance. Recommendations/Counseling Done: 1. Hypertension. Patient's headaches had improved some, she reports she still has some persistent headache today. Her blood pressure does look much better, she is continue to be followed by nephrology though does not see him till June. We had started her on amlodipine 10 mg daily, she has been taking her blood pressure and logging, instructed to take to her PCP visit as she is forgotten today. Today her blood pressure is within normal limits. She will work with PCP for adjustments. 2. Leg pain. I suspect this is multifactorial in origin, including e xacerbation of her RLS symptoms. We will did order her oxycodone 1 tab every 4 hours, she has managed fairly well with her leg pain at night with 1 pill prior to going to bed, has combined that sometimes with lorazepam 1 hour later. But has been able to manage with just 1 oxycodone the last 3 nights with better and improved sleep, though she is quite wakeful. 3. Insomnia. Patient has long-term had difficulty with sleeping, she does report it somewhat improved. She is now on mirtazapine up to 15 mg, with hopes this to improve sleep, as well as her appetite. 4. CLL. They are continue to work-up the nuances of her treatment, she has started with her oral medication. She is to receive Zometa today for her hypercalcemia, her understanding is part of her bigger picture disease process. She is worried about the financial toxicity of her treatment, does understand there may be a chemotherapy available. She is wanting most likely to pursue a second opinion just to confirm her current treatment plan and know how all her options. She does understand the seriousness of her illness, and continues to do quite poorly. Hope is that she will be responding soon, she is somewhat impatient with the process. 5. Weight loss. This is multifactorial, including connection of food with her grief response. Patient does have significant amount of social support but not local in the community, I did offer medical palliative care social media marketer in the context of this, she declined at this point in time. She does have taste changes, she is trying to stay hydrated, she does not like to drink water, it makes her more nauseated. She is trying to find a balance with working with smoothies, reiterated goal for increased protein intake. And no further weight loss. She has lost 5 pounds over the last week again. 6. Renal insufficiency. Patient is getting renal ultrasound on Saturday, but does not have follow-up with her brass wind instrument maker until June. This will need to be tracked. Continues to struggle with high creatinine, is on allopurinol as well. 7. Advanced care planning. POLST has been completed with DNR selective treatments. She reports she has completed her D POA, which is her friend Jodee Wiseman in [place] [phone]. She is weighing benefits and burdens of treatment decisions as they come up, in the context of her quality of life. Time Spent: 30 minutes with greater than 50% of this done in counseling regarding symptom management, and anticipatory guidance.
== END 2020-06-07 12:04 | disposition home or self-care (01) ==
LOC: PC 12:03
PROVIDERS: ATTEND Nurse Practitioner Adult Health
DX: Z51.5 Encounter for palliative care (principal); C91.10 Chronic lymphocytic leukemia of B-cell type not having achieved remission; R59.1 Generalized enlarged lymph nodes; R16.1 Splenomegaly, not elsewhere classified; E83.52 Hypercalcemia; R63.4 Abnormal weight loss; D64.9 Anemia, unspecified; N28.9 Disorder of kidney and ureter, unspecified; G25.81 Restless legs syndrome; I10 Essential (primary) hypertension; M79.605 Pain in left leg; M79.604 Pain in right leg; I73.00 Raynaud's syndrome without gangrene; G47.00 Insomnia, unspecified; H54.7 Unspecified visual loss; Z66 Do not resuscitate; Z79.891 Long term (current) use of opiate analgesic; Z79.82 Long term (current) use of aspirin
CPT/HCPCS: 99214

== ENCOUNTER 2020-06-10 12:08 | Outpatient (CLI) | payer MEDICARE, BC ==
--- NOTE | 2020-06-13 17:43 | Ultrasound Report ---
PROCEDURE: Arterial Visceral Complete INDICATIONS: HYPERTENSION, ACUTE INJURY TO KIDNEY TECHNIQUE: Real time scanning was performed of both kidneys, followed by Color and pulsed Doppler in terrogation of the renal vessels. COMPARISON: None FINDINGS: Aortic peak systolic velocity: 104 cm/s. Right side: Robert-scale imaging: Kidney is 10.6 cm long; renal cortical thickness is 2 cm. No hydronephrosis. Pu nctate echogenic microcalcifications are noted within the right kidney. Renal cortex is normal in ec hogenicity. No suspicious solid renal masses. Proximal renal artery peak systolic velocity: 93 cm/s. Mid renal artery peak systolic velocity: 76 cm/s. Distal renal artery peak systolic velocity: 70 cm/s. Renal vein: Patent, without thrombus. Peak renal/aortic ratio (RAR): 0.89. Left side: Robert-scale imaging: Kidney is 12.6 cm long; renal cortical thickness is 1.6 cm. No hydronephrosis. No nephrolithiasis. Renal cortex is normal in echogenicity. No suspicious solid renal masses. Proximal renal artery peak systolic velocity: 46 cm/s. Mid-renal artery peak systolic velocity: 57 cm/s. Distal renal artery peak systolic velocity: 68 cm/s. Renal vein: Patent, without thrombus. Peak renal/aortic ratio (RAR): 0.65. IMPRESSION: 1. No sonographic evidence for renal artery stenosis. 2. 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 Reviewed by: Linda Mcwilliams MD on 06/13/2020 5:41 PM PDT Approved by: Linda Mcwilliams MD on 06/13/2020 5:41 PM PDT Station ID: [id number]
== END 2020-06-10 12:09 | disposition home or self-care (01) ==
LOC: DI 12:08
PROVIDERS: ATTEND Internal Medicine Nephrology
DX: I10 Essential (primary) hypertension (principal); N17.9 Acute kidney failure, unspecified
CPT/HCPCS: 93975

== ENCOUNTER 2020-06-21 10:24 | Outpatient (CLI) | payer MEDICARE, BC ==
--- NOTE | 2020-06-21 12:17 | CONSULTATION NOTE ---
Palliative Care Follow Up - Referral Referring Provider: Dr. 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 She has needed to transfusions, though is holding her own today. She did have a sign ificant acute episode where she "felt like she wanted to " last weekend, with increased pain and distress, lost 10 pounds over week, was unable to eat, had functional decline, and severe nausea. Unclear precipitating factor, is tolerating her medication better, and has since called her friend Lisa Wiseman, from [place] to come provide support. Patient been doing so poorly, her friend was anticipating coming out for end-of-life, she is continued to improve, did have a friend Aviva who bridged support until she is able to get her last . She is starting to eat, she is having less nausea, she is finding the Compazine effective. She has trialed Zofran without any results. Palliative care is seeing her for symptom management, she reports her leg pain and restless leg syndrome is improving. She is at her therapeutic dose of mirtazapine, she is using MiraLAX daily with good bowel movements, she is eating better, is still struggling some with insomnia. She is scheduled for a second opinion Melony Cruz next week, she is meeting with oncology later. She is quite distressed by the financial toxicity of her current treatment, her understanding is she is to be on it for life. Her labs are coming into better focus, as well as her blood pressure is well controlled on her current amlodipine 10 mg daily. Her headaches have resolved, and feeling better overall. She is accessing more support and getting her affairs in order. She is responding to her current treatment and is encouraged. Social History - Living Situation Living arrangement: At home Living Situation: Alone Support System: Patient does live alone, she is recently hospice of esophageal cancer. She was finally able to reach out and asked for support, her friend is here until things have stabilized as well as identifying ways to better support Barbara in her home setting.Patient's brother is recently diagnosed with a brain tumor, this is caused another layer of distress and worry. Medications/Allergies - Medications Home Medications: Ambulatory Orders Medication Instructions Recorded Confirmed Estradiol 0.05 mg Patch [Climara 0.05 mg TOP ONCE 04/29/18 06/21/20 0.05 mg] Sertraline [Zoloft] 50 mg PO DAILY 04/29/18 06/21/20 Mirtazapine 15 mg PO QPM 05/25/20 06/21/20 Amlodipine Besylate 10 mg PO DAILY 06/01/20 06/21/20 LORazepam [Ativan] 0.5 mg PO Q8HR PRN 06/01/20 06/21/20 oxyCODONE [Roxicodone] 5 mg PO Q4HR PRN 06/01/20 06/21/20 Aspirin [Aspirin EC] 81 mg PO DAILY 06/07/20 06/21/20 Ibrutinib [Imbruvica] 420 mg PO DAILY 06/21/20 06/21/20 Prochlorperazine [Compazine] 5 tab PO Q6HR PRN 06/21/20 06/21/20 - Allergies Allergies/Adverse Reactions: Allergies Allergy/AdvReac Type Severity Reaction Status Date / Time cephalexin Allergy Rash Verified 06/21/20 11:31 meperidine [From Demerol] AdvReac Unknown Verified 06/21/20 11:31 Review of Systems - Constitutional Constitutional: reports: Fatigue, Poor appetite, Weight loss. denies: Fever, Chills - Ears, Nose & Throat Ears, Nose & Throat: reports: Mouth lesions (right mucusitis lesion of tongue; outer lip), Dry mouth - Cardiovascular Cardiovascular: reports: Exertional dyspnea, Decr. exercise tolerance. denies: Chest pain - Respiratory Respiratory: reports: SOB with exertion. denies: SOB at rest - Gastrointestinal Gastrointestinal: reports: Nausea (controlled with compazine; not needed for a couple of days), Bloating, Poor appetite (doing better), Early satiety. denies: Constipation, Diarrhea - Genitourinary Genitourinary: reports: Frequency - Musculoskeletal Musculoskeletal: reports: Muscle aches, Stiffness, Muscle weakness - Integumentary Integumentary: reports: Dryness - Neurological Neurological: reports: General weakness - Psychiatric Psychiatric: reports: Depression, Anxiety - Hematologic/Lymphatic Hematologic/Lymphatic: reports: Anemia. denies: Bruising - All Other Systems All Other Systems: reports: Reviewed and negative Physical Exam - Vital Signs Temperature: 36.5 C Pulse Rate: 82 Respiratory Rate: 16 Blood Pressure: 112/68 - Physical Exam General Appearance: positive: No acute distress, Alert Eyes Bilateral: positive: Normal inspection, No scleral icterus, Other (periorbital edema) ENT: positive: Mouth lesions (right side of tongue) Neck: positive: Trachea midline Respiratory: positive: No respiratory distress Abdomen: positive: Non-tender, Soft Skin: positive: Pallor Extremities: positive: Pedal edema (trace) Neurologic/Psychiatric: positive: Oriented x3, Mood/affect nml, Weakness, Flat affect Palliative Care - POLST Patient has POLST: Yes POLST Status: DNR, Selective Treatment Pain: Pain improved, Location (legs), Severity (o/10 today) Tiredness/Fatigue: Mild (1-3) Drowsiness/Sedation: None Nausea: None Anorexia: None Dyspnea: None Depression: Mild (1-3) Anxiety: Mild (1-3) Feelings of wellbeing/Perceived Quality of Life: Good, Acceptable, Improved Sleep: Variable sleep pattern Constipation: Yes, Managed Performance Status: Patient remains weak, is able to manage her own ADLs, does have poor activity tolerance. She is starting to ambulate little bit more. She does have significant fatigue. - Palliative Care Discussion: Patient continues to feel somewhat overwhelmed, she is worried about cost, long- term implications regarding treatment, and how best to proceed. Her friend is present at least until things stabilize, she is improving, and her symptom burden lightening. She is to have a second opinion, she is with multiple questions regarding long-term implications regarding her disease and treatment options. She did feel quite poorly over the last week and, "felt like I wanted to ", is feeling much more positive today, and continue to work on her symptoms and treatment support. Results - Lab Results Lab results reviewed: Yes Impression and Recommendations - Palliative Care Impression: This is a 70-year-old woman with CLL symptom burden, continues with weight loss, fatigue, and poor activity tolerance. She has had improvement in her labs, blood pressure, and RLS. She is still struggling with insomnia, palliative care continue provide support for symptom management and anticipatory guidance. Recommendations/Counseling Done: 1. Hypertension. Patient's headaches have resolved, sure blood pressures are improved, she is tolerating amlodipine at 10 mg daily. Did refill, will continue to monitor, hoping to defer to PCP for further adjustments. 2. Leg pain. I suspect this is multifactorial in origin, exacerbation of RLS symptoms most likely rated to her anemia and tumor lysis syndrome. She is taking 1 oxycodone at bedtime, but has felt like it is improved overall. She may taper off if continues to improve. 3. Insomnia. Patient has long-term had difficulty with sleeping, she is now on the mirtazapine 15 mg, does seem to have improved sleep but still intermittent difficulties. She is taking her ibrutinib at bedtime, side effects do list insomnia. Recommended to back off 2 hours every 3 or 4 days to take in the a.m. Patient can use lorazepam if needs to, she will contact me if needs something further for sleep. 4. CLL. She is continue to work on the nuances of her treatment, has started her routine med with some severe reaction. She did receive Zometa, unclear if this is expected long-term. She is getting a second opinion at [facility]. She is quite distressed with the cost of her treatment, is wondering if she would choose otherwise as far as chemotherapy. She is meeting with oncology later today, and will ask her questions. 5. Weight loss. This is multifactorial, she is getting better support with her friend here. They have tried a variety of strategies, I suspect also the mirtazapine is kicking in. They are working with shakes and increased intake and small frequent feedings. 6. Stomatitis. This is a side effect of her medication, does not appear to have candidiasis. Instructed on normal saline rinses 1 teaspoon in 6 to 8 ounces of water 4-5 times a day to help with healing, instructed to call if worsens, or needs something for pain. Can order Magic mouthwash. Though this is not covered by insurance, and finances are a significant concern for her. 7. Advanced care planning. They are finishing up the final components of her advance care planning documents, she does have her POLST in place with DNA R/DNI and selective treatments. She feels like she is making headway on this, and is feeling less anxious. Palliative care to continue provide support for pain and symptom management. Time Spent: 50 minutes with greater than 50% of this done in counseling regarding pain and symptom management, coordination of care with friend and oncology team.
== END 2020-06-21 10:25 | disposition home or self-care (01) ==
LOC: PC 10:24
PROVIDERS: ATTEND Nurse Practitioner Adult Health
DX: Z51.5 Encounter for palliative care (principal); R53.83 Other fatigue; R63.4 Abnormal weight loss; R68.81 Early satiety; I10 Essential (primary) hypertension; K12.1 Other forms of stomatitis; T50.905A Adverse effect of unspecified drugs, medicaments and biological substances, initial encounter; G25.81 Restless legs syndrome; G47.00 Insomnia, unspecified; R11.0 Nausea; R06.09 Other forms of dyspnea; R53.1 Weakness; M79.605 Pain in left leg; M79.604 Pain in right leg; E88.3 Tumor lysis syndrome; C91.10 Chronic lymphocytic leukemia of B-cell type not having achieved remission; Z79.899 Other long term (current) drug therapy; Z79.891 Long term (current) use of opiate analgesic; Z63.79 Other stressful life events affecting family and household; Z59.8 Other problems related to housing and economic circumstances; Z66 Do not resuscitate
CPT/HCPCS: 99215

== ENCOUNTER 2020-08-22 13:40 | Outpatient (CLI) | payer MEDICARE, BC ==
--- NOTE | 2020-08-23 09:59 | Mammography Report ---
BILATERAL DIGITAL SCREENING MAMMOGRAM 3D/2D: 08/22/2020 CLINICAL: Routine screening. Comparison is made to exams dated: 01/01/2018 mammogram, 03/07/2019 mammogram, and 11/07/2015 mammogram - [facility]. The tissue of both breasts is extremely dense, which lowers the sen sitivity of mammography. Both breasts have increased in density likely due to weight change. No significant masses, calcifications, or other findings are seen in either breast. IMPRESSION: NEGATIVE There is no definite mammographic evidence of malignancy. There is progressive marked increase in breast density bilaterally likely due to weight loss. Recomme nd correlation clinically. A 1 year screening mammogram is recommended. This exam was interpreted at Station ID: [id number]. NOTE: For mammograms, a report in lay terms will be sent to the patient. Approximately 15% of breast malignancies will not be visualized mammographically. In the management of a palpable breast mass, a negative mammogram must not discourage biopsy of a clinically suspicious lesion. Electronically Signed By: Luis Wiggins M.D. ddp/:08/22/2020 16:30:41 ACR BI-RADS Category 1: Negative 3341F PARENCHYMAL PATTERN: (VD) - The breast(s) demonstrate(s) extremely dense parenchyma, limiting the sen sitivity of mammography. BI-RADS CATEGORY: (1) - 1 RECOMMENDATION: (ANNUAL) - Recommend routine annual screening mammography. [id number] 1 year screening LATERALITY: (B)
== END 2020-08-22 13:41 | disposition home or self-care (01) ==
LOC: DI 13:40
DX: Z12.31 Encounter for screening mammogram for malignant neoplasm of breast (principal)
CPT/HCPCS: 77063; 77067

== ENCOUNTER 2020-08-24 14:17 | Outpatient (CLI) | payer MEDICARE, BC ==
[2020-08-24 14:37] LABS: BASOPHILS % (AUTO) 0.2 %; EOSINOPHILS % (AUTO) 0.6 %; HGB - HEMOGLOBIN 10.5 g/dL (12.0-16.0); LYMPHOCYTES % (AUTO) 77.7 %; MEAN CORPUSCULAR HEMOGLOBIN 32.5 pg (27.0-31.0); MEAN CORPUSCULAR HGB CONC 32.4 g/dL (32.0-36.0); MEAN CORPUSCULAR VOLUME 100.3 fL (81.0-99.0); MEAN PLATELET VOLUME 9.6 fL (7.9-10.8); MONOCYTES % (AUTO) 7.2 %; PLT - PLATELET COUNT 164 10^3/uL (130-450); RED BLOOD COUNT 3.23 10^6/uL (4.20-5.40); RED CELL DISTRIBUTION WIDTH 15.7 % (12.0-15.0); WHITE BLOOD COUNT 13.1 x10^3/uL (4.8-10.8)
[2020-08-24 14:43] LABS: ALBUMIN 3.8 g/dL (3.2-5.5); ALBUMIN/GLOBULIN RATIO 1.1 (1.0-2.2); BILIRUBIN,TOTAL 1.1 mg/dL (0.2-1.0); CALCIUM 9.5 mg/dL (8.5-10.3); TOTAL PROTEIN 7.4 g/dL (6.7-8.2)
[2020-08-24 14:56] LABS: ABNORMAL LYMPHS % (MANUAL) 0 %
[2020-08-24 14:59] LABS: BAND NEUTROPHILS % (MANUAL) 1 %; DIFFERENTIAL COMMENT MANUAL DIFFERENTIAL; LYMPHOCYTES # (MANUAL) 11.4 10^3/uL (1.5-3.5); LYMPHOCYTES % (MANUAL) 79 %; MONOCYTES # (MANUAL) 0.1 10^3/uL (0.0-1.0); RBC MORPHOLOGY (MULTIPLE) 2+ ANISOCYTOSIS (NORMAL)
[2020-08-24 18:22] LABS: ABSOLUTE RETICS # AUTO 0.087 10^6/uL (0.020-0.110); EOSINOPHILS # (AUTO) 0.1 10^3/uL (0.0-0.7); LYMPHOCYTES # (AUTO) 10.7 10^3/uL (1.5-3.5); MONOCYTES # (AUTO) 0.6 10^3/uL (0.0-1.0); NEUTROPHILS # (AUTO) 1.9 10^3/uL (1.5-6.6)
[2020-08-26 09:36] LABS: HAPTOGLOBIN <8 mg/dL (43-212)
[2020-08-26 22:22] LABS: ABNORMAL PROTEIN BAND 1 1.2 g/dL (NONE DETECTED); ALBUMIN 4.1 g/dL (3.8-4.8); ALPHA 1 GLOBULIN 0.3 g/dL (0.2-0.3); ALPHA 2 GLOBULIN 0.6 g/dL (0.5-0.9); BETA 1 GLOBULIN 0.3 g/dL (0.4-0.6); BETA 2 GLOBULIN 0.2 g/dL (0.2-0.5); GAMMA GLOBULIN 1.5 g/dL (0.8-1.7)
== END 2020-08-24 14:18 | disposition home or self-care (01) ==
LOC: LAB 14:17
PROVIDERS: ATTEND Internal Medicine Hematology & Oncology
DX: C91.10 Chronic lymphocytic leukemia of B-cell type not having achieved remission (principal)
CPT/HCPCS: 36415; 80053; 82668; 82784; 83010; 83615; 84155; 84165; 85025; 85045

== ENCOUNTER 2020-10-06 14:11 | Outpatient (CLI) | payer MEDICARE, BC ==
[2020-10-06 14:40] LABS: ABSOLUTE RETICS # AUTO 0.039 10^6/uL (0.020-0.110); EOSINOPHILS # (AUTO) 0.1 10^3/uL (0.0-0.7); EOSINOPHILS % (AUTO) 1.2 %; HGB - HEMOGLOBIN 10.8 g/dL (12.0-16.0); LYMPHOCYTES # (AUTO) 3.6 10^3/uL (1.5-3.5); LYMPHOCYTES % (AUTO) 55.1 %; MEAN CORPUSCULAR HEMOGLOBIN 31.7 pg (27.0-31.0); MEAN CORPUSCULAR HGB CONC 31.9 g/dL (32.0-36.0); MEAN CORPUSCULAR VOLUME 99.4 fL (81.0-99.0); MEAN PLATELET VOLUME 10.6 fL (7.9-10.8); MONOCYTES # (AUTO) 0.7 10^3/uL (0.0-1.0); MONOCYTES % (AUTO) 11.3 %; NEUTROPHILS # (AUTO) 2.1 10^3/uL (1.5-6.6); NEUTROPHILS % (AUTO) 32.1 %; PLT - PLATELET COUNT 125 10^3/uL (130-450); RED BLOOD COUNT 3.41 10^6/uL (4.20-5.40); RED CELL DISTRIBUTION WIDTH 14.1 % (12.0-15.0); WHITE BLOOD COUNT 6.6 x10^3/uL (4.8-10.8)
[2020-10-06 14:50] LABS: ALBUMIN 3.6 g/dL (3.2-5.5); ALBUMIN/GLOBULIN RATIO 0.9 (1.0-2.2); BILIRUBIN,TOTAL 1.6 mg/dL (0.2-1.0); CALCIUM 9.3 mg/dL (8.5-10.3); CREATININE 0.8 mg/dL (0.4-1.0); TOTAL PROTEIN 7.7 g/dL (6.7-8.2)
[2020-10-06 15:03] LABS: T4 (THYROXINE) 5.04 ug/dL (6.09-12.23)
[2020-10-06 15:06] LABS: THYROID STIMULATING HORMONE 2.62 uIU/mL (0.34-5.60)
[2020-10-08 08:41] LABS: HAPTOGLOBIN <8 mg/dL (43-212)
[2020-10-08 16:32] LABS: ABNORMAL PROTEIN BAND 1 1.1 g/dL (NONE DETECTED); ALBUMIN 3.5 g/dL (3.8-4.8); ALPHA 1 GLOBULIN 0.2 g/dL (0.2-0.3); ALPHA 2 GLOBULIN 0.4 g/dL (0.5-0.9); BETA 1 GLOBULIN 0.2 g/dL (0.4-0.6); BETA 2 GLOBULIN 0.2 g/dL (0.2-0.5); GAMMA GLOBULIN 1.3 g/dL (0.8-1.7)
== END 2020-10-06 14:12 | disposition home or self-care (01) ==
LOC: LAB 14:11
PROVIDERS: ATTEND Internal Medicine Hematology & Oncology
DX: C91.10 Chronic lymphocytic leukemia of B-cell type not having achieved remission (principal); D64.9 Anemia, unspecified
CPT/HCPCS: 36415; 80053; 82668; 82784; 83010; 83615; 83883; 84155; 84165; 84436; 84443; 85025; 85045

== ENCOUNTER 2020-11-22 15:33 | Outpatient (CLI) | payer MEDICARE, BC ==
--- NOTE | 2020-11-22 17:27 | CONSULTATION NOTE ---
Palliative Care Follow Up - Referral Referring Provider: Dr. Phoenix Time of Visit: [id number] Referral setting: [facility] – [place] Referral Reason: Peripheral neuropathy/Grief/CLL - Information Sources Records reviewed: Previous records reviewed History/Review of Systems obtained from: Patient Exam limitations: No limitations - History of Present Illness Update Brief HPI Update: This is a 70-year-old woman being treated for chronic lymphocytic leukemia, has been on ibrutinib since 05/31/2020. She has been doing fairly well, her anemia has improved, her weight has stabilized, she continues with persistent fatigue. She does though also have worsening peripheral neuropathy, describes this as a burning pain, starts late afternoon, and is fairly severe through the evening, we have been increasing gabapentin to titrate to effect, currently titrated up to 600 mg in the evening with good improvement of both her peripheral neuropathy and RLS. She reports still persistent low energy levels, has found the holidays quite difficult with the loss of her this year describes appropriate grief reaction. She does occasionally use oxycodone 5 mg at bedtime, when pain is severe, she struggles with insomnia as this is been fairly a lifelong process for her. Past Medical History: Raynaud's, RLS, anxiety, depression, insomnia hypertension COPD, GERD, chronic vision loss, anxiety, surgical history hysterectomy Social History - Living Situation Living arrangement: At home Living Situation: Alone Support System: Patient lives alone, she is this last year. She is describing appropriate grief reaction with first holidays. She had many friends give her call for support, she though [place], [place] she moved here they were building and then her got sick. 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 She and her build their own house. She does have a very good friend in [place] is retired RN, as well as a brother in [place]. Medications/Allergies - Medications Home Medications: Ambulatory Orders Medication Instructions Recorded Confirmed Estradiol 0.05 mg Patch [Climara 0.05 mg TOP ONCE 04/29/18 11/22/20 0.05 mg] Sertraline [Zoloft] 50 mg PO DAILY 04/29/18 11/22/20 LORazepam [Ativan] 1 mg PO BID PRN 06/01/20 11/22/20 oxyCODONE [Roxicodone] 5 mg PO Q4HR PRN 06/01/20 11/22/20 Ibrutinib [Imbruvica] 420 mg PO DAILY 06/21/20 11/22/20 Gabapentin 600 mg PO QPM 07/06/20 11/22/20 Valacyclovir HCl [Valtrex] 1,000 mg PO DAILY 07/06/20 11/22/20 - Allergies Allergies/Adverse Reactions: Allergies Allergy/AdvReac Type Severity Reaction Status Date / Time cephalexin Allergy Rash Verified 10/25/20 15:09 meperidine [From Demerol] AdvReac Unknown Verified 10/25/20 15:09 Review of Systems - Constitutional Constitutional: reports: Fatigue (improved), Night sweats, Weight stable (128). denies: Fever, Chills - Eyes Eyes: reports: Vision loss - Ears, Nose & Throat Ears, Nose & Throat: denies: Mouth lesions - Cardiovascular Cardiovascular: reports: Decr. exercise tolerance. denies: Edema - Respiratory Respiratory: denies: SOB at rest, SOB with exertion - Gastrointestinal Gastrointestinal: reports: Early satiety. denies: Constipation, Nausea, Reflux/heartburn - Musculoskeletal Musculoskeletal: reports: Muscle weakness - Integumentary Integumentary: reports: Dryness - Psychiatric Psychiatric: reports: Depression. denies: Suicidal - Endocrine Endocrine: reports: Intolerance to cold - Hematologic/Lymphatic Hematologic/Lymph: Anemia - All Other Systems All Other Systems: reports: Reviewed and negative Physical Exam - Vital Signs Temperature: 36.3 C Pulse Rate: 83 Respiratory Rate: 16 Blood Pressure: 146/88 - Physical Exam General Appearance: positive: Alert Eyes Bilateral: positive: Other (periorbital edema) ENT: positive: No signs of dehydration Neck: positive: Trachea midline Respiratory: positive: No respiratory distress Skin: positive: Pallor Extremities: positive: No pedal edema Neurologic/Psychiatric: positive: Oriented x3, Weakness, Depressed mood/affect, Flat affect Palliative Care - POLST Patient has POLST: Yes POLST Status: DNR, Selective Treatment Pain: Pain improved, Location (peripheral neuropathy feet), Comment (titrating gababpentin to 600 mg; occasional use of oxycodone at bedtime) Tiredness/Fatigue: Moderate (4-6) Drowsiness/Sedation: None Nausea: None Anorexia: Mild (1-3) Dyspnea: None Depression: Moderate (4-6) Anxiety: Mild (1-3) Feelings of wellbeing/Perceived Quality of Life: Fair, Acceptable, Improved Sleep: Variable sleep pattern Constipation: No Performance Status: Patient does perceive herself is getting stronger, she is able to manage her own ADLs, bring firewood and manage her household. She would like to get stronger, is considering implementing a home exercise program and improve creasing her ambulation/walking.Declines PT referral - Palliative Care Discussion: Discussion focused on patient's appropriate and normal grief reaction to the holidays, with recent loss of her . Patient denies any suicidality, discussed different ways of coping, and encouraged reaching out for support. Counseling provided regarding normalizing current process. Patient continues to hope for the best, is pleased currently health is improving, as well as symptom burden. Results - Lab Results Lab results reviewed: Yes Impression and Recommendations - Palliative Care Impression: This is a clyde 70-year-old woman with CLL, currently receiving her irbrutinib with good results. Patient continues to struggle with peripheral neuropathy, p ersistent fatigue, and depression. Palliative care continue provide support regarding symptom management and psychosocial support Recommendations/Counseling Done: 1. Peripheral neuropathy. Most likely attributed to her treatment and/or side effects of disease. This is complicated by patient's underlying longtime history of RLS. She is responding with both to gabapentin, increased to 600 mg at at bedtime. She does use oxycodone 5 mg for breakthrough pain, she is using this appropriately. We will continue current treatment plan. 2. Insomnia. Patient continues to struggle with following asleep, at this point in time it is not pain related. She does have some grief and anxiety, but has been offered sleep studies in the past. She feels she would do this if she could do it at home, encouraged her to consider after she passes through these next few months. Would most likely would improve her fatigue level and RLS overall. 3. Depression. This is complicated by appropriate grieving and sadness with first holiday without her . We did discuss intensity, and need for reaching out for support to further support her coping. She does have good ins ight, denies any suicidality, have offered up social work and or bereavement counselor, at this point time continues to feel like she is managing. She is not interested in further titration of her medications. 4. Vitamin D deficiency. Patient at higher end with 29. Would not qualify for high-dose vitamin D, with recommended 5000 units daily for 6 weeks, then 2000 units for maintenance. Recommended recheck in 8 weeks. 5. Generalized weakness. This is multifactorial, she is gaining strength and some endurance. Did offer up physical therapy, declined at this point in time, is planning to incorporate and start progressive ambulation and home exercises. Instructed to reach out if wants further support. Time Spent: 30 minutes with greater than 50% of this done in counseling and psychosocial support regarding depression, pain, and anticipatory guidance.
== END 2020-11-22 15:34 | disposition home or self-care (01) ==
LOC: PC 15:33
PROVIDERS: ATTEND Nurse Practitioner Adult Health
DX: Z51.5 Encounter for palliative care (principal); R53.83 Other fatigue; G62.9 Polyneuropathy, unspecified; G25.81 Restless legs syndrome; G47.00 Insomnia, unspecified; F32.9 Major depressive disorder, single episode, unspecified; E55.9 Vitamin D deficiency, unspecified; R53.1 Weakness; C91.10 Chronic lymphocytic leukemia of B-cell type not having achieved remission; Z79.899 Other long term (current) drug therapy; Z66 Do not resuscitate; Z63.4 Disappearance and death of family member
CPT/HCPCS: 99214

== ENCOUNTER 2020-12-13 13:58 | Outpatient (CLI) | payer MEDICARE, BC ==
[2020-12-13 14:50] LABS: HGB - HEMOGLOBIN 10.6 g/dL (12.0-16.0); LYMPHOCYTES # (AUTO) 1.8 10^3/uL (1.5-3.5); LYMPHOCYTES % (AUTO) 42.2 %; MEAN CORPUSCULAR HEMOGLOBIN 31.9 pg (27.0-31.0); MEAN CORPUSCULAR HGB CONC 32.9 g/dL (32.0-36.0); MEAN PLATELET VOLUME 10.2 fL (7.9-10.8); MONOCYTES # (AUTO) 0.5 10^3/uL (0.0-1.0); MONOCYTES % (AUTO) 12.6 %; NEUTROPHILS # (AUTO) 1.9 10^3/uL (1.5-6.6); PLT - PLATELET COUNT 131 10^3/uL (130-450); RED BLOOD COUNT 3.32 10^6/uL (4.20-5.40); RED CELL DISTRIBUTION WIDTH 14.7 % (12.0-15.0); WHITE BLOOD COUNT 4.2 x10^3/uL (4.8-10.8)
== END 2020-12-13 13:59 | disposition home or self-care (01) ==
LOC: LAB 13:58
PROVIDERS: ATTEND Internal Medicine Hematology & Oncology
DX: D64.9 Anemia, unspecified (principal)
CPT/HCPCS: 36415; 80053; 82784; 83615; 83883; 85025

== ENCOUNTER 2021-02-07 15:30 | Outpatient (CLI) | payer MEDICARE, BC ==
--- NOTE | 2021-02-07 17:29 | CONSULTATION NOTE ---
Palliative Care Follow Up - Referral Referring Provider: Dr. Marian Phoenix Time of Visit: [id number]; record review/ labs 15 minutes = 45 minutes Referral setting: [facility] Referral Reason: RLS/HTN/Anxiety/CLL - Information Sources Records reviewed: Previous records reviewed History/Review of Systems obtained from: Patient Exam limitations: No limitations - History of Present Illness Update Brief HPI Update: This is a clyde 70-year-old woman with chronic lymphocytic leukemia with IgM kappa type, continues on ibrutinib daily. She has had stomatitis, which is since resolved. She is also had fluctuating neutropenia, which is 2.3 today. Continues to have thinning nails, fluctuating fatigue, has remained weight neutral at 135. Patient presents with concern regarding hypertension, we did review her log, it does average at 133/90, but does have some higher numbers that are of concern. She does register today for the MA at 154/91. She is concerned that she does have some deteriorating vision, and was wondering about hypertension. She has been getting shots including prednisone, and they are monitoring that, but has not had much improvement. Patient's other presenting symptom today is increased difficulty with phlegm. This is been intermittent over the years, and has not reoccurred for a while, she identifies it is stress related, she has had follow-up with ENT, swallow test, has failed Flonase, omeprazole, has ruled out food allergies, has not found Mucinex effective. She has in the past use BuSpar, that has addressed the stress component, given her fluctuating anxiety and intermittent depressive feelings with feelings of loss and grief with her loss of her , would be appropriate to try and address it from this standpoint. Though she was starting to get some work-up to an candle molder, recommended she continue on that vein. As spring is notorious [place] for worsening molds and allergens. Palliative care is also treating her for her peripheral neuropathy, combined with severe cramping and leg pain, particularly at night. At this point in time this is well controlled on gabapentin 600 mg, with lorazepam 1 mg and oxycodone 5 mg. She still is only sleeping 1 hour at a time, but does not want to take anything more sedating as she does live alone and is worried about falls. At this point in time no changes made to this regimen. She is also coming on the 1 year anniversary of her 's . She is appropriately tearful, and expressing grief and loss feelings regarding this. Past Medical History: Raynaud's, RLS, anxiety, depression, insomnia, hypertension, COPD, GERD, chronic vision loss, anxiety, surgical history; hysterectomy Social History - Living Situation Living arrangement: At home Living Situation: Alone Support System: Patient does live alone, has been impacted of course by the pandemic, and isolation. She does have friends who check on her as well as that she can reach out for. 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 Has found that supportive. Medications/Allergies - Medications Home Medications: Ambulatory Orders Medication Instructions Recorded Confirmed Estradiol 0.05 mg Patch [Climara 0.05 mg TOP ONCE 04/29/18 02/07/21 0.05 mg] Sertraline [Zoloft] 50 mg PO DAILY 04/29/18 02/07/21 LORazepam [Ativan] 1 mg PO BID PRN 06/01/20 02/07/21 oxyCODONE [Roxicodone] 5 mg PO Q4HR PRN 06/01/20 02/07/21 Ibrutinib [Imbruvica] 420 mg PO DAILY 06/21/20 02/07/21 Gabapentin 600 mg PO QPM 07/06/20 02/07/21 Valacyclovir HCl [Valtrex] 1,000 mg PO DAILY 07/06/20 02/07/21 Biotin 1 cap ORAL DAILY 02/07/21 02/07/21 Cholecalciferol (Vitamin D3) 2,000 unit PO DAILY 02/07/21 02/07/21 [Vitamin D3] busPIRone [Buspar] 5 - 10 mg PO BID PRN 02/07/21 02/07/21 - Allergies Allergies/Adverse Reactions: Allergies Allergy/AdvReac Type Severity Reaction Status Date / Time cephalexin Allergy Rash Verified 01/24/21 13:48 meperidine [From Demerol] AdvReac Unknown Verified 01/24/21 13:48 Review of Systems - Constitutional Constitutional: reports: Fatigue (fluctuates but has steadily improved), Weight gain (135) - Eyes Eyes: reports: Irritation, Blurred vision, Vision loss - Ears, Nose & Throat Ears, Nose & Throat: denies: Mouth lesions - Cardiovascular Cardiovascular: reports: Decr. exercise tolerance - Respiratory Respiratory: reports: Cough, Sputum production. denies: Wheezing, SOB at rest - Gastrointestinal Gastrointestinal: reports: Early satiety. denies: Diarrhea, Reflux/heartburn - Musculoskeletal Musculoskeletal: reports: Stiffness, Muscle weakness - Integumentary Integumentary: reports: Dryness, Nail changes - Neurological Neurological: reports: Numbness - Psychiatric Psychiatric: reports: Depression, Anxiety (stress induced) - Hematologic/Lymphatic Hematologic/Lymph: reports: Anemia. denies: Recurrent infections - All Other Systems All Other Systems: reports: Reviewed and negative Physical Exam - Vital Signs Temperature: 36.6 C Pulse Rate: 70 Respiratory Rate: 18 O2 Saturation: 99 Blood Pressure: 154/91 - Physical Exam General Appearance: positive: No acute distress, Alert Eyes Bilateral: positive: Normal inspection ENT: positive: No signs of dehydration Neck: positive: Trachea midline Cardiovascular: positive: Regular rate & rhythm Respiratory: positive: No respiratory distress, Breath sounds nml Abdomen: positive: Non-tender Skin: positive: Pallor, Dryness, Other (thinning nails) Extremities: positive: No pedal edema Neurologic/Psychiatric: positive: Oriented x3, Mood/affect nml Palliative Care - POLST Patient has POLST: Yes POLST Status: DNR, Selective Treatment Pain: Pain unchanged, Location (leg/controlled at night with current regimen) Tiredness/Fatigue: Mild (1-3) Drowsiness/Sedation: Mild (1-3) Nausea: None Anorexia: Mild (1-3) Dyspnea: None Depression: Mild (1-3) Anxiety: None Feelings of wellbeing/Perceived Quality of Life: Fair, No change Constipation: No Performance Status: Patient is able to manage her ADLs, is doing more projects, has fluctuating levels of energy which impacts how much she is doing. - Palliative Care Discussion: Discussion related to symptoms but also to pending anniversary of her 's 1 year . Patient appropriately tearful, is trying to discern if more related to her current condition and isolation with pandemic versus unresolved grief. She does know she can reach out if she needs further support. Discussed patient's current symptoms regarding her "phlegm", stress-induced, discussed ways and thinks it worked in the past, may help with anxiety, will initiate BuSpar again. Patient is quite pragmatic, continues to process living with a c hronic illness/serious illness Results - Lab Results Lab results reviewed: Yes Impression and Recommendations - Palliative Care Impression: This is a clyde 70-year-old woman with CLL, currently receiving her ibrutinib with good support. Patient continues to struggle with intermittent symptoms, including peripheral neuropathy, fluctuating fatigue, grief and loss, and stress related symptoms. Palliative care continue provide support regarding symptom management and psychosocial support. Recommendations/Counseling Done: 1. Hypertension. Patient does present with some elevated blood pressures, requested she keep a log for couple weeks, may want to restart her amlodipine if continues to be persistent. 2. Peripheral neuropathy. This is currently addressed with 600 mg at bedtime, this is complicated by her underlying longtime history of RLS and pain in her legs and feet. She is also using oxycodone 5 mg for breakthrough pain, with lorazepam to assist with sleep. She is continue to use this appropriately, will continue current treatment plan. 3. Phlegm. This has been a problem in the past, has been stress-induced, patient does describe increased stressors, we will go ahead and treat for anxiety see if this improves, she has used BuSpar in the past. Counseling provided regarding titration, will start BuSpar 5 mg twice daily, can titrate after 1 week up to 2 tabs twice daily, encouraged to go in a stepwise manner, patient verbalized understanding. Given the timing also to follow-up with her allergy testing, she had started this process prior to the pandemic before, she has had her Covid shots, feels more comfortable following through at this point. 4. Depression. This is complicated and appropriate grieving and sadness with the pending anniversary. Did offer bereavement services, or follow-up. Time spent in just reflective listening regarding her journey over this last year. 45 minutes. Review of patient's symptom management, counseled on medications, management of hypertension, 5 psychosocial support, and anticipatory guidance.
== END 2021-02-07 15:31 | disposition home or self-care (01) ==
LOC: PC 15:30
PROVIDERS: ATTEND Nurse Practitioner Adult Health
DX: Z51.5 Encounter for palliative care (principal); I10 Essential (primary) hypertension; G62.9 Polyneuropathy, unspecified; G25.81 Restless legs syndrome; F41.9 Anxiety disorder, unspecified; F32.9 Major depressive disorder, single episode, unspecified; C91.10 Chronic lymphocytic leukemia of B-cell type not having achieved remission; Z79.899 Other long term (current) drug therapy; Z66 Do not resuscitate
CPT/HCPCS: 99215

== ENCOUNTER 2021-03-09 08:01 | Outpatient (CLI) | payer MEDICARE, BC ==
--- NOTE | 2021-03-09 15:23 | XRAY Report ---
PROCEDURE: Hand 3 View LT INDICATIONS: GANGLION CYST TECHNIQUE: 3 views of the hand(s) acquired. COMPARISON: None. FINDINGS: Bones: No fractures or dislocations. No suspicious bony lesions. Soft tissues: No suspicious soft tissue calcifications. IMPRESSION: Osseous elements appear normal, no mass identified that would suggest soft tissue lesion or ganglion cysts. MR scanning allows accurate detection and diagnosis of ganglion cysts. Reviewed by: Yasmany Lovell MD on 03/09/2021 3:22 PM PDT Approved by: Yasmany Lovell MD on 03/09/2021 3:22 PM PDT Station ID: [id number]
== END 2021-03-09 23:59 | disposition home or self-care (01) ==
LOC: DI.N 08:01
PROVIDERS: ATTEND Orthopaedic Surgery
DX: M67.40 Ganglion, unspecified site (principal)

== ENCOUNTER 2021-04-14 08:00 | Outpatient (CLI) | payer MEDICARE, BC | END 2021-04-14 23:59 | disposition home or self-care (01) | LOC: LAB.WCP 08:00 | PROVIDERS: ATTEND Family Medicine | DX: Z01.84 Encounter for antibody response examination (principal); D89.2 Hypergammaglobulinemia, unspecified | CPT/HCPCS: 36415; 86769 ==

== ENCOUNTER 2021-04-18 12:27 | Outpatient (CLI) | payer MEDICARE, BC ==
[2021-04-18] MEDS ORDERED: IOPAMIDOL-300 50 ML VIAL ONE (12:31)
[2021-04-18] MEDS ORDERED: IOVERSOL 320 100 ML VIAL IVP ONE ×2 (12:31→13:44)
[2021-04-18] MEDS ORDERED: IOPAMIDOL-300 50 ML VIAL PO ONE (13:43)
--- NOTE | 2021-04-18 17:38 | CT Report ---
PROCEDURE: CHEST W INDICATIONS: LYMPHOMA CONTRAST: IV CONTRAST: Optiray 320 ml: 100 PO CONTRAST: Isovue 300 ml50 TECHNIQUE: After the administration of intravenous contrast, 5 mm thick sections acquired from the pulmonary api giancarlo to the posterior costophrenic angles. 7 mm thick coronal MIP reformats were acquired. For radia tion dose reduction, the following was used: automated exposure control, adjustment of mA and/or kV according to patient size. COMPARISON: 04/13/2020 FINDINGS: Image quality: Excellent. Lungs and pleura: Resolution of bibasilar patchy groundglass opacities. Tiny groundglass nodules at the right upper lobe, for example , measure up to 6 mm and were present previously. Subpleural ri ght upper lobe granuloma is redemonstrated. Scattered thin-walled pulmonary cysts are occasionally se en. No dense air space opacities. No pleural effusions or pneumothorax. Central and peripheral airw ays are patent and normal in caliber. Mediastinum: Heart size is normal. Heavy coronary artery calcification. No pericardial effusion. N o mediastinal or hilar adenopathy by size criteria. Thoracic aorta and central pulmonary arteries ar e normal in size. Esophagus is normal in caliber. No hiatal hernia. Bones and chest wall: Interval decrease in size of bilateral axillary adenopathy. The largest node on the right now measures 9 mm in short axis and the largest on the left measures about 10 mm. No supra clavicular adenopathy. No suspicious bony lesions. No vertebral body compression fractures. The t hyroid is normal in size and there are no incidental findings.. Abdomen: Please see accompanying report of the CT abdomen pelvis.. IMPRESSION: 1. Scattered and stable right upper lobe groundglass nodules are likely postinfectious or inflammator y. 2. Interval resolution of bilateral groundglass opacities. 3. Interval decrease in size of bilateral axillary adenopathy without progression of adenopathy at ot her sites in the chest. CLINICAL RECOMMENDATION STATEMENTS: In patients <35 years with an ITN detected on CT, MRI, or extrathyroidal ultrasound, the Committee re commends further evaluation with dedicated thyroid ultrasound if the nodule is ?1 cm and has no suspi cious imaging features, and if the patient has normal life expectancy. In patients ?35 years with an ITN detected on CT, MRI, or extrathyroidal ultrasound, the Committee re commends further evaluation with dedicated thyroid ultrasound if the nodule is ?1.5 cm and has no joao picious imaging features, and if the patient has normal life expectancy. (ACR, 2014) Reviewed by: Deidre Melchor MD on 04/18/2021 5:37 PM PDT Approved by: Deidre Melchor MD on 04/18/2021 5:37 PM PDT Station ID: [id number]
--- NOTE | 2021-04-18 17:53 | CT Report ---
PROCEDURE: Abdomen/Pelvis W INDICATIONS: LYMPOMA CONTRAST: IV CONTRAST: Optiray 320 ml: 100 PO CONTRAST: Isovue 300 ml50 TECHNIQUE: After the administration of IV and oral contrast, 5 mm thick sections acquired from the diaphragms to the symphysis. 5 mm thick coronal and sagittal reformats were acquired. For radiation dose reducti on, the following was used: automated exposure control, adjustment of mA and/or kV according to sheela ent size. COMPARISON: 04/13/2020 FINDINGS: Image quality: Excellent. ABDOMEN: Lung bases: Lung bases are clear. Heart size is normal. Heavy coronary artery calcification. Solid organs: The spleen is enlarged measuring 15.6 x 7.2 x 12.1 cm, decreased compared to the prior study where it measured 22.8 x 9.1 x 15.3 cm. The liver is normal in size and morphology. Stable subcentimeter hypodensity in the caudal liver vicky cent to the gallbladder 2 small to characterize. No other liver lesions. Gallbladder is within normal limits. Biliary system is non dilated. Pancreas enhances normally. No adrenal nodules. Kidneys d emonstrate normal size and enhancement, without hydronephrosis. 1.3 cm cortical hypodensity in the l ower pole of the right kidney. The left kidney is slightly diminutive, essentially secondary to mass effect by the spleen. Peritoneum and bowel: Bowel loops demonstrate normal wall thickness and caliber. No free fluid or a ir. Nodes and vessels: The portal vein diameter is enlarged up to 16 mm. There is focal mid abdominal ao rtic pseudoaneurysm for length of 5.4 cm resulting in aneurysmal dilatation of the mid abdominal aort a measuring 3.3 x 2.6 cm. The aneurysm sac demonstrates contrast enhancement. There is no peripheral calcification. No periaortic fat stranding. No retroperitoneal or mesenteric adenopathy by size crite cheikh. Miscellaneous: No ventral hernias. PELVIS: Genitourinary: Bladder wall thickness is normal. Retroverted uterus is normal for age. Miscellaneous: No inguinal hernias or adenopathy. Decreased size of prior mildly enlarged inguinal lymph nodes. Bones: No suspicious bony lesions. No vertebral body compression fractures. IMPRESSION: 1. Decreased severity of splenomegaly. 2. Mid abdominal aortic pseudoaneurysm. Previously this study did not include IV contrast and the str ucture was not able to be fully evaluated, however there is a small amount of high-density thrombus s een previously, though this is less extensive than currently seen suggesting this has progressed in t he interim. Vascular surgery consultation is recommended. 3. Decreased bilateral inguinal adenopathy. Reviewed by: Deidre Melchor MD on 04/18/2021 5:51 PM PDT Approved by: Deidre Melchor MD on 04/18/2021 5:51 PM PDT Station ID: [id number]
== END 2021-04-18 12:28 | disposition home or self-care (01) ==
LOC: DI 12:27
PROVIDERS: ATTEND Internal Medicine Hematology & Oncology
DX: C85.90 Non-Hodgkin lymphoma, unspecified, unspecified site (principal); R91.8 Other nonspecific abnormal finding of lung field; R16.1 Splenomegaly, not elsewhere classified; I71.4 Abdominal aortic aneurysm, without rupture
CPT/HCPCS: 71260; 74177; Q9967

== ENCOUNTER 2021-04-20 14:01 | Outpatient (CLI) | payer MEDICARE, BC ==
[2021-04-20 14:54] VITALS: BP 143/90
--- NOTE | 2021-04-20 14:54 | SLEEP CARE CONSULTATION ---
Information from patient questionnaire entered by Vickie Pelayo. I have reviewed and concur with the information entered by Vickie Pelayo. This document represents the service I personally performed and the decisions made by me, Sarah Beth Mcgowan ARNP. History of Present Illness Service Date and Time: 04/20/2021 1401 Reason for Visit: New patient Chief Complaint: reports: Insomnia (since onset of cancer treatment), Unrefreshed sleep, Snoring, Frequent awakenings at night, Other (restless legs) Date of Onset: years, insomnia since onset of cancer treatment Usual bedtime: 11 pm Time it takes to fall asleep: 2 hours Snores at night: No (unsure) Observed to quit breathing while asleep: No Number of times waking at night: 5-6 Reasons for waking at night: reports: Choking (not for years), Gasping for air (not for years), Other (unknown reasons). denies: Snoring Toss, Turn, or Twitch while sleeping: Yes Recalls having dreams: Yes Usually gets out of bed at: 9-11 am Feels refreshed in the morning: No Morning headache: No Sleepy or fatigued during the day: Yes Ever fallen asleep while driving: No (once in a while, drowsy driving with long distances only) Takes day naps: No Prior sleep studies: No Additional HPI information: I had the pleasure of seeing DEMETRICE BILLS today regarding the possibility of her having a sleep disorder. Her current complaints are frequent night awakenings, insomnia and restless legs. She comes in today because she can't sleep and not quality sleep. She states it takes a couple hours to go to sleep. She wakes up every 45 minutes to an hour through the night. She states this has started since she began cancer treatment. She does not know if is medication related but states it is listed as one of the side effects. She does have restless legs syndrome. She has always been a light sleeper. She does snore according to her late . She does not remember if he noted a lot of pauses in breathing during sleep. This last year has been very hard with her 's , Covid and her cancer diagnosis. She has been fully vaccinated but just found out that she may not be able to develop the antibodies she needs to be protected against Covid virus. - Parasomnia Symptoms Ever been unable to move upon waking from sleep: No Walks in sleep: No Talks in sleep: No Ever acted out dreams in sleep: No Ever felt weak in the knees when startled or emotional: No Bothered by creepy, crawly, restless sensations in legs: Yes (has RLS; rarely has restless feeling in legs during the day) Problems with memory or concentration: No Subjective Initial [place] Sleepiness Scale score: 2 (in 2020) Past Medical History Past Medical History: reports: Hypertension, Anemia, Anxiety, Other (chronic lymphocile leukemia) Social History The patient's occupation is a Retired. Patient is / and lives in [place]. Have you smoked in the past 12 months: No Quit date: 1978 Alcohol use: Yes Alcohol amount and frequency: 1 glass of wine or 1 scotch nightly Caffeine use: No Family History Family history of sleep disordered breathing: No Family Hx Sleep Apnea: Father: Snoring Allergies and Home Medications Drug allergies reviewed: Yes (cephalexin, meperidine) Home medication list reviewed: Yes Allergy and home medication list: Estradiol Amlodipine Sertraline Buspirone Lorazepam Oxycodone Omeprazole Imbruvica Valcyclovir Calcium citrate Magnesium zinc Probiotic Biotin Vitamin D3 Vitamin B complex Review of Systems Weight gain over past 5 years: 25 Weight loss over past 5 years: 50 Cardiovascular: reports: high blood pressure Respiratory: reports: shortness of breath Gastrointestinal: reports: nausea, diarrhea Neurological: reports: headaches Psychiatric: reports: anxiety, depression Ear/Nose/Throat: reports: nose bleeds. denies: tonsillectomy Endocrine: reports: too hot or cold Musculoskeletal: reports: neck pain, back pain, muscle pain or cramping Immunologic: reports: itching Physical Exam Blood Pressure: 143/90 Cuff size: regular Heart Rate: 78 O2 Saturation: 100 Height: 5 ft 8 in Weight: 142 lb Body Mass Index: 21.6 BMI Classification: Healthy weight Neck circumference: 13.2 (inches) Mouth and throat: narrow oropharynx Soft palate: long Hard palate: normal Uvula visualization: 50% Mallampati Class II Tongue: enlarged in size with teeth guerra on lateral edges Tonsils: 1+ Neck: normal w/o lymphadenopathy or thyromegaly Heart: regular rate and rhythm Lungs: clear bilaterally Impression and Plan 1. Suspected Obstructive Sleep Apnea-Hypopnea Syndrome, as suggested by a history of irregular snoring, gasping or choking in sleep, frequent awakening during the night, and unrefreshed sleep. Narrow oropharynx and obesity are common predisposing factors for obstructive sleep apnea-hypopnea syndrome. I recommend proceeding to polysomnography to confirm the diagnosis and to assess severity. If the patient has significant sleep disordered breathing, a manual CPAP titration study will also be performed to find the optimal treatment pressure. I informed the patient of what the sleep studies involve and after some discussion, obtained agreement to proceed. The pathophysiology of obstructive sleep apnea-hypopnea syndrome was discussed with the patient and health risks of cardiovascular and cerebrovascular disease if not treated. Risks of drowsy driving discussed in detail and patient advised to avoid long distance driving and to box puller at the first sign of drowsiness. Patient agreed to plan. * Schedule polysomnography +- manual CPAP titration study and return in 1-2 weeks after the study to discuss result and initiate therapy. * Avoid long distance driving or driving when feeling sleepy. * Avoid alcohol, sedative and muscle relaxant around bedtime. * Attempt to lose weight. * Review instructions provided by trained office staff on how to prepare for the sleep study. * Return for follow-up after sleep study completed. Counseling Topics: Weight control Visit Type: In Office Time Spent with Patient (minutes): 32 Provider Statement: I spent 100% of the Face to Face Visit with the patient with greater than 50% spent counseling the patient and coordination of care.
== END 2021-04-20 14:02 | disposition home or self-care (01) ==
LOC: SC 14:01
PROVIDERS: ATTEND Nurse Practitioner Family
DX: G47.8 Other sleep disorders (principal); R06.83 Snoring
CPT/HCPCS: 99203; G0463; 99212

== ENCOUNTER 2021-06-09 15:00 | Outpatient (CLI) | payer MEDICARE, BC ==
--- NOTE | 2021-06-09 17:44 | CONSULTATION NOTE ---
Palliative Care Follow Up - Referral Referring Provider: Dr. Marian Phoenix Time of Visit: 1500 60 minutes Referral setting: MAC Referral Reason: Depression/Anxiety/CLL - Information Sources Records reviewed: RN notes reviewed, Previous records reviewed History/Review of Systems obtained from: Patient Exam limitations: No limitations - History of Present Illness Update Brief HPI Update: This is a clyde 71-year-old woman with CLL with IgM kappa type, continues on ibrutinib daily. She continues to have thinning nails, fluctuating fatigue, intermittent GI symptoms improved on omeprazole, and continues to struggle with insomnia. She feels like her anxiety and her depression are currently well controlled with her BuSpar and sertraline, she is at 75 mg, does not want to increase this further. She has transitioned to new oncologist, they have met today, is hoping this will be a good fit. He was able to talk her into trying ropinirole, as she has been quite resistant up to this point because of her mother's RLS. She has a pending sleep study, but now may have to cancel it, given the complexities around her sleep issues and being able to withstand testing. Patient shares she most recently had a CT scan at [facility], which did show a decrease in her splenomegaly from 23 cm to 15 cm. She reports unfortunately they had found a "aortic hematoma", she has been seeing a pasteurizing supervisor in consult, and no clear if it has been there for a while or not, is looking for comparison study. She is hoping this will not result in any further interventions. She did receive a third Covid shot, is awaiting to have her antibodies checked. She feels this will improve her mood overall and decrease her isolation. She has been walking, she is up to 1.2 miles over the last 8 days, is feeling positive about this. She does have a good friend coming to visit for a few days and is looking forward to this. She remains distressed at her weight gain, she feels her ideal weight is around 135, she is at 144 Past Medical History: Raynaud's, RLS, anxiety, depression, insomnia, hypertension, COPD, GERD, chronic vision loss, anxiety, hysterectomy Social History - Living Situation Living arrangement: At home Living Situation: Alone Support System: Patient just passed her 's his 1 year anniversary, remains quite isolated with minimal community support. She does have friends she can reach out to, but is quite independent. She is hoping to be able to address her Covid status to be able to have more freedom to be in community. She has always been involved in processes/businesses, she is connecting via [employer], and stays in touch with her friends via phone Medications/Allergies - Medications Home Medications: Ambulatory Orders Medication Instructions Recorded Confirmed Estradiol 0.05 mg Patch [Climara 0.05 mg TOP ONCE 04/29/18 05/12/21 0.05 mg] Sertraline [Zoloft] 75 mg PO DAILY 04/29/18 05/12/21 LORazepam [Ativan] 1 mg PO BID PRN 06/01/20 05/12/21 oxyCODONE [Roxicodone] 10 mg PO Q4HR PRN 06/01/20 05/12/21 Ibrutinib [Imbruvica] 420 mg PO DAILY 06/21/20 05/12/21 Valacyclovir HCl [Valtrex] 1,000 mg PO DAILY 07/06/20 05/12/21 Biotin 1 cap ORAL DAILY 02/07/21 05/12/21 Cholecalciferol (Vitamin D3) 2,000 unit PO DAILY 02/07/21 05/12/21 [Vitamin D3] busPIRone [Buspar] 5 - 10 mg PO BID 02/07/21 05/12/21 Amlodipine Besylate [Norvasc] 10 mg PO DAILY PM 03/06/21 05/12/21 B-Complex with Vitamin C [Vitamin 1 ea PO DAILY 05/12/21 05/12/21 B-Complex with Vit C] Omeprazole [PriLOSEC] 20 mg PO DAILY 05/12/21 05/12/21 - Allergies Allergies/Adverse Reactions: Allergies Allergy/AdvReac Type Severity Reaction Status Date / Time cephalexin Allergy Rash Verified 04/04/21 13:28 meperidine [From Demerol] AdvReac Unknown Verified 04/04/21 13:28 Review of Systems - Constitutional Constitutional: reports: Fatigue, Weight gain. denies: Fever, Chills - Eyes Eyes: reports: Vision loss, Corrective lenses - Ears, Nose & Throat Ears, Nose & Throat: reports: Dry mouth. denies: Mouth lesions - Cardiovascular Cardiovascular: denies: Palpitations, Chest pain, Edema - Respiratory Respiratory: denies: SOB at rest - Gastrointestinal Gastrointestinal: reports: Bloating, Early satiety. denies: Constipation, Diarrhea, Reflux/heartburn (improved) - Genitourinary Genitourinary: reports: Frequency - Musculoskeletal Musculoskeletal: reports: Stiffness, Muscle weakness - Integumentary Integumentary: reports: Dryness - Neurological Neurological: reports: Numbness - Psychiatric Psychiatric: reports: Depression, Anxiety - Hematologic/Lymphatic Hematologic/Lymph: denies: Anemia - All Other Systems All Other Systems: reports: Reviewed and negative Physical Exam - Vital Signs Temperature: 36.5 C Pulse Rate: 71 Respiratory Rate: 18 O2 Saturation: 100 Blood Pressure: 146/88 - Physical Exam General Appearance: positive: Alert, Mild distress Eyes Bilateral: positive: Other (periorbital edema improved) ENT: positive: No signs of dehydration Neck: positive: Trachea midline Respiratory: positive: No respiratory distress Abdomen: positive: Non-tender, Soft Extremities: positive: Nml appearance Neurologic/Psychiatric: positive: Oriented x3, Depressed mood/affect, Flat affect Palliative Care - POLST Patient has POLST: Yes POLST Status: DNR, Selective Treatment Pain: Pain unchanged, Location (legs) Sleep: Sleeps poorly Performance Status: Patient has felt well enough to increase her activity, is ambulating daily, independent in her ADLs. - Palliative Care Discussion: Counseling and review of her journey, her frustrations with her ongoing issues around quality of life, complexity of her social situation. She is grateful her disease is responding, she is tolerating her treatment, but does find the side effects and dealing with the medical system quite frustrating for her. She feels her depression has lifted some, as well as her anxiety we will continue to provide palliative care support as patient requests Results - Lab Results Lab results reviewed: Yes Impression and Recommendations - Palliative Care Impression: This is a clyde 71-year-old woman with CLL, currently receiving her ibrutinib with good support. Being outcome of sleep study as well as cardiac issues, regarding addressing next steps in both issues. Patient continues to struggle with fluctuating symptoms, fatigue, grief and loss, and stress related symptoms. Palliative care continue provide support regarding symptom management and psychosocial support Recommendations/Counseling Done: 1. RLS. Patient is agreed to trial ropinirole after meeting with oncologist, had been fairly resistant up to this point regarding her mother's experience. Though I suspect her mother was on carbidopa levodopa. She will need to titrate off lorazepam, she has been on this long-term, taper written out as well as 0.5 mg tabs ordered to be able to taper more slowly. She will continue to take the oxycodone 10 mg as it does help the pain in the context of her peripheral neuropathy. 2. Peripheral neuropathy. Patient wanted to titrate off the gabapentin secondary to concerns of weight gain. She did this without difficulty. 3. Anxiety. This has been problematic as far as phlegm induced by stress. She has multiple stressors, is doing well on BuSpar 10 mg twice a day, she is also following up on trying to reach status with improved antigens for COVID-19, to be able to be more in the community. Counseling support provided in the context of her current journey and telling of her story. 4. Depression. This is complicated and appropriate grieving with sadness has passed her anniversary, is getting out and moving more, is feeling less depressed. She does have a friend coming, whom she does enjoy. Does not feel like she needs to increase her sertraline up to 100 mg, will continue to monitor. 5. Advance care planning. Patient does have a POLST in place with DN AR/DNI and selective treatments. Patient continues to weigh decisions around her health in the context of quality of life, she does feel like it has improved at some level, but still struggles with moderate to high symptom burden. 60 minutes with review of oncology notes, labs, [id number], counseling provided for pain and symptom management and psychosocial support as well as anticipatory guidance
== END 2021-06-09 15:01 | disposition home or self-care (01) ==
LOC: PC 15:00
PROVIDERS: ATTEND Nurse Practitioner Adult Health
DX: Z51.5 Encounter for palliative care (principal); G25.81 Restless legs syndrome; G62.9 Polyneuropathy, unspecified; F41.9 Anxiety disorder, unspecified; F32.9 Major depressive disorder, single episode, unspecified; C91.10 Chronic lymphocytic leukemia of B-cell type not having achieved remission; Z79.899 Other long term (current) drug therapy; Z66 Do not resuscitate
CPT/HCPCS: 99215

== ENCOUNTER 2021-06-14 15:23 | Outpatient (CLI) | payer MEDICARE, BC | END 2021-06-14 15:24 | disposition home or self-care (01) | LOC: LAB 15:23 | PROVIDERS: ATTEND Family Medicine | DX: Z01.84 Encounter for antibody response examination (principal) | CPT/HCPCS: 86769 ==

== ENCOUNTER 2021-08-31 15:11 | Outpatient (CLI) | payer MEDICARE, BC ==
[2021-08-31 16:19] LABS: BASOPHILS % (AUTO) 0.2 %; HCT - HEMATOCRIT 38.6 % (37.0-47.0); HGB - HEMOGLOBIN 12.9 g/dL (12.0-16.0); LYMPHOCYTES # (AUTO) 1.8 10^3/uL (1.5-3.5); LYMPHOCYTES % (AUTO) 30.2 %; MEAN CORPUSCULAR HEMOGLOBIN 31.2 pg (27.0-31.0); MEAN CORPUSCULAR HGB CONC 33.4 g/dL (32.0-36.0); MEAN CORPUSCULAR VOLUME 93.5 fL (81.0-99.0); MEAN PLATELET VOLUME 10.8 fL (7.9-10.8); MONOCYTES # (AUTO) 0.6 10^3/uL (0.0-1.0); MONOCYTES % (AUTO) 10.1 %; NEUTROPHILS # (AUTO) 3.5 10^3/uL (1.5-6.6); NEUTROPHILS % (AUTO) 59.2 %; PLT - PLATELET COUNT 148 10^3/uL (130-450); RED BLOOD COUNT 4.13 10^6/uL (4.20-5.40); RED CELL DISTRIBUTION WIDTH 13.3 % (12.0-15.0)
[2021-08-31 16:22] LABS: ALBUMIN 4.4 g/dL (3.2-5.5); ALBUMIN/GLOBULIN RATIO 1.5 (1.0-2.2); ALKALINE PHOSPHATASE 66 IU/L (42-121); ALT ALANINE AMINOTRANSFERASE 23 IU/L (10-60); AST ASPARTATE AMINOTRANSFERASE 20 IU/L (10-42); BILIRUBIN,TOTAL < 0.2 mg/dL (0.2-1.0); BUN - BLOOD UREA NITROGEN 21 mg/dL (6-20); CALCIUM 9.4 mg/dL (8.5-10.3); CARBON DIOXIDE - CO2 29 mmol/L (21-32); CHLORIDE 97 mmol/L (101-111); GFR - MDRD 55 (>89); GLUCOSE 119 mg/dL (70-100); POTASSIUM 3.9 mmol/L (3.5-5.0); SODIUM 137 mmol/L (135-145); TOTAL PROTEIN 7.4 g/dL (6.7-8.2)
[2021-09-02 16:17] LABS: ABNORMAL PROTEIN BAND 1 0.2 g/dL (NONE DETECTED); ALBUMIN 4.3 g/dL (3.8-4.8); ALPHA 1 GLOBULIN 0.3 g/dL (0.2-0.3); ALPHA 2 GLOBULIN 0.6 g/dL (0.5-0.9); BETA 1 GLOBULIN 0.3 g/dL (0.4-0.6); BETA 2 GLOBULIN 0.2 g/dL (0.2-0.5); GAMMA GLOBULIN 0.4 g/dL (0.8-1.7)
== END 2021-08-31 15:12 | disposition home or self-care (01) ==
LOC: LAB 15:11
PROVIDERS: ATTEND Internal Medicine Hematology & Oncology
DX: C95.90 Leukemia, unspecified not having achieved remission (principal); E55.9 Vitamin D deficiency, unspecified
CPT/HCPCS: 36415; 80053; 82306; 82784; 83615; 84155; 84165; 85025; 85810

== ENCOUNTER 2021-09-08 13:58 | Outpatient (CLI) | payer MEDICARE, BC ==
--- NOTE | 2021-09-11 08:50 | Mammography Report ---
BILATERAL DIGITAL SCREENING MAMMOGRAM 3D/2D: 09/08/2021 CLINICAL: Routine screening. Comparison is made to exams dated: 08/22/2020 mammogram, 03/07/2019 mammogram, 01/01/2018 mammogram, and 11/07/2015 mammogram - [facility]. The tissue of both breasts is extremely dense, which lowers the sensitivity of mammography. No significant masses, calcifications, or other findings are seen in either breast. There has been no significant interval change. IMPRESSION: NEGATIVE There is no mammographic evidence of malignancy. A 1 year screening mammogram is recommended. This exam was interpreted at Station ID: [id number]. NOTE: For mammograms, a report in lay terms will be sent to the patient. Approximately 15% of breast malignancies will not be visualized mammographically. In the management of a palpable breast mass, a negative mammogram must not discourage biopsy of a clinically suspicious lesion. Electronically Signed By: Maksim Parker M.D., jr/renetta:09/08/2021 15:07:47 ACR BI-RADS Category 1: Negative 3341F PARENCHYMAL PATTERN: (VD) - The breast(s) demonstrate(s) extremely dense parenchyma, limiting the sen sitivity of mammography. BI-RADS CATEGORY: (1) - 1 RECOMMENDATION: (ANNUAL) - Recommend routine annual screening mammography. [id number] 1 year screening LATERALITY: (B)
== END 2021-09-08 13:59 | disposition home or self-care (01) ==
LOC: DI 13:58
DX: Z12.31 Encounter for screening mammogram for malignant neoplasm of breast (principal)

== ENCOUNTER 2021-09-08 14:43 | Outpatient (CLI) | payer MEDICARE, BC ==
--- NOTE | 2021-09-08 15:41 | CONSULTATION NOTE ---
Palliative Care Follow Up - Referral Referring Provider: Dr. Marian Phoenix/Dr. Garcia now primary oncologist Time of Visit: 1445 45 minutes Referral setting: MAC Referral Reason: Depression/Insomnia/Anxiety/CLL - Information Sources Records reviewed: Previous records reviewed History/Review of Systems obtained from: Patient Exam limitations: No limitations - History of Present Illness Update Brief HPI Update: This is a clyde 71-year-old woman with CLL with IgM kappa type, continuing on ibrutinib daily. She continues to do fairly well overall, though remains quite isolated given the Covid pandemic, continue with depressive feelings in the context of her continued grief over her loss of her , as well as persistent insomnia. She most recently had a Mohs surgery on her nose, for basal cell carcinoma, has a little blood blister/bleb at the corner. This does not appear without signs or symptoms of infection, and most likely will just reabsorb. She reports she has had weight gain of 35 pounds, feels this is attributed to her estrogen, continues with persistent and uncomfortable hot flashes, and is looking at increasing her estradiol. She has had some improvement with her RLS in the evening, using ropinirole 0.5 mg, has not been able to do her walking, continues with some persistent fatigue. She does have friends who are tracking her and reaching out on regular basis, but for the most part remains mostly isolated at home. Past Medical History: Raynaud's, RLS, anxiety, depression, insomnia, hypertension, COPD, GERD, chronic vision loss, hysterectomy Social History - Living Situation Living arrangement: At home Living Situation: Alone Support System: Patient is over a year ago, remains isolated with minimal community support. She does have some friends who check on her regularly, she recently went to [place] and enjoyed her visit. She and her built her home, and she is continuing to finish up her projects. Medications/Allergies - Medications Home Medications: Ambulatory Orders Medication Instructions Recorded Confirmed Estradiol 0.05 mg Patch [Climara 0.05 mg TOP ONCE 04/29/18 09/09/21 0.05 mg] Sertraline [Zoloft] 75 mg PO DAILY 04/29/18 09/09/21 oxyCODONE [Roxicodone] 10 mg PO Q4HR PRN 06/01/20 09/09/21 Ibrutinib [Imbruvica] 420 mg PO DAILY 06/21/20 09/09/21 Valacyclovir HCl [Valtrex] 1,000 mg PO DAILY 07/06/20 09/09/21 Biotin 1 cap ORAL DAILY 02/07/21 09/09/21 Cholecalciferol (Vitamin D3) 2,000 unit PO DAILY 02/07/21 09/09/21 [Vitamin D3] busPIRone [Buspar] 5 - 10 mg PO BID 02/07/21 09/09/21 Amlodipine Besylate [Norvasc] 10 mg PO DAILY PM 03/06/21 09/09/21 B-Complex with Vitamin C [Vitamin 1 ea PO DAILY 05/12/21 09/09/21 B-Complex with Vit C] Omeprazole [PriLOSEC] 20 mg PO DAILY 05/12/21 09/09/21 rOPINIRole [Requip] 0.5 mg PO QPM 06/12/21 09/09/21 Rosuvastatin Calcium [Crestor] 5 mg PO DAILY 07/07/21 09/09/21 traZODone [Desyrel] 50 mg PO QPM PRN 09/09/21 09/09/21 - Allergies Allergies/Adverse Reactions: Allergies Allergy/AdvReac Type Severity Reaction Status Date / Time cephalexin Allergy Rash Verified 04/04/21 13:28 meperidine [From Demerol] AdvReac Unknown Verified 04/04/21 13:28 Review of Systems - Constitutional Constitutional: reports: Fatigue (persistent), Weight gain (reports 35 pounds; no change in intake) - Eyes Eyes: reports: Vision loss, Corrective lenses - Ears, Nose & Throat Ears, Nose & Throat: reports: Dental pain, Dry mouth - Gastrointestinal Gastrointestinal: reports: Bloating, Early satiety. denies: Constipation, Diarrhea, Reflux/heartburn - Genitourinary Genitourinary: reports: Frequency, Nocturia - Musculoskeletal Musculoskeletal: reports: Stiffness, Muscle weakness - Integumentary Integumentary: reports: Dryness, Other (scar on nose healing nicely at proximal end left side small hematoma/bleb; no s/s infection) - Neurological Neurological: reports: Numbness - Psychiatric Psychiatric: reports: Depression, Anxiety - Hematologic/Lymphatic Hematologic/Lymph: denies: Recurrent infections - All Other Systems All Other Systems: reports: Reviewed and negative Physical Exam - Physical Exam General Appearance: positive: No acute distress, Alert Eyes Bilateral: positive: Normal inspection ENT: positive: No signs of dehydration Respiratory: positive: No respiratory distress Extremities: positive: Nml appearance Neurologic/Psychiatric: positive: Oriented x3, Depressed mood/affect, Flat affect Palliative Care - POLST Patient has POLST: Yes POLST Status: DNR, Selective Treatment Pain: No pain Tiredness/Fatigue: Mild (1-3) Drowsiness/Sedation: None Nausea: Mild (1-3) Anorexia: Mild (1-3) Dyspnea: None Depression: Mild (1-3) (declined need for titration of medication) Anxiety: Mild (1-3), Comment (feels buspar addressing) Feelings of wellbeing/Perceived Quality of Life: Fair, Acceptable Sleep: Sleeps poorly, Variable sleep pattern, Other (wine/scotch at bedtime) Constipation: No Performance Status: Patient had been doing her walking program, unfortunately had to put this on hold during her surgery. She is planning to resume. She was up to 30 minutes. - Palliative Care Discussion: Ronna aj meeting with palliative care for check-in, does intermittently speak by phone with patient for support and symptom management. She continues to be quite isolated, is hoping her COVID-19 shot has given her increased antibodies, But feels she does not want take the risk having taken all this time to get treatment and follow-up on her cancer treatment. She continues with appropriate grief reaction unable to really have access community for ongoing support regarding this. Continue to be available for support as patient requests. Results - Lab Results Lab results reviewed: Yes Impression and Recommendations - Palliative Care Impression: This is a clyde 71-year-old woman with CLL, currently receiving her ibrutinib with good response. Patient continues to struggle with fluctuating symptoms of fatigue, grief and loss, insomnia, and social isolation. Palliative care continue provide support regarding symptom management and psychosocial support, and anticipatory guidance as needed. Recommendations/Counseling Done: 1. RLS. Pain patient is trialing ropinirole at 0.5 mg, with good response. She has tapered off her lorazepam, continues to take the oxycodone 10 mg and helps them in context of peripheral neuropathy. New Rx provided. Patient did complete and titrate off gabapentin, she attributed this to weight gain, though this is continued to be problematic. 2. Anxiety. This is a fairly persistent problem for her, has had multiple stressors, she reports she is doing well on her BuSpar 10 mg twice a day. She continues to remain isolated in the context of concern for COVID-19 and lack of immunity. She does not feel she needs any other adjustments, still the opportunity to increase sertraline if needed. Patient does well with distraction, unfortunately has had very few given her isolation. Encouraged to start her [employer] project. 3. Hot flashes. Patient has been on estrogen long-term, is looking at a higher patch. Discussed other options which is returning back to the gabapentin, changing out sertraline for venlafaxine. Patient may consider exploring hormone levels prior to increasing estrogen. 4. Insomnia. Patient continues to struggle with frequent awakening, this also is impacted by her nocturia. She has been using a glass of wine/scotch before bed with some ability to relax at least fall asleep. Counseling provided regarding the role of acupuncture or exploring yoga. She has not been able to obtain a sleep study, is looking at home study. She is trialing trazodone 50 mg as a result of meeting with oncology, has not wanted to do Ambien or other sleep aids. 5. Fatigue. This is multifactorial, she had been doing her walking program, is awaiting referral to physical therapy. Discussed other options and encouraged to restart her walking program. Advanced care planning. Patient does have POLST in place with DN AR/DNI and selective treatments. She continues to weigh her decisions around quality of life, she feels this continues to improve at some level but continues to str uggle with moderate to high symptom burden. Her DPOA for healthcare is her good friend Christianne Wiseman [phone] 45 minutes Review of labs, oncology notes, [id number] for counseling regarding symptom management, psychosocial support, and anticipatory guidance
== END 2021-09-08 14:44 | disposition home or self-care (01) ==
LOC: PC 14:43
PROVIDERS: ATTEND Nurse Practitioner Adult Health
DX: Z51.5 Encounter for palliative care (principal); Z66 Do not resuscitate; C91.10 Chronic lymphocytic leukemia of B-cell type not having achieved remission; R53.83 Other fatigue; F43.21 Adjustment disorder with depressed mood; G47.00 Insomnia, unspecified; Z60.4 Social exclusion and rejection; G25.81 Restless legs syndrome; F41.9 Anxiety disorder, unspecified; N95.1 Menopausal and female climacteric states; H54.7 Unspecified visual loss
CPT/HCPCS: 99215

== ENCOUNTER 2021-11-07 11:19 | Outpatient (CLI) | payer MEDICARE, BC ==
[2021-11-07 11:42] LABS: CREATININE 0.9 mg/dL (0.4-1.0)
[2021-11-07] MEDS ORDERED: IOPAMIDOL-300 100 ML VIAL ONE (11:51)
[2021-11-07] MEDS ORDERED: IOPAMIDOL-300 100 ML VIAL IVP ONE (13:09)
--- NOTE | 2021-11-07 17:12 | CT Report ---
PROCEDURE: ANGIO ABD RUNOFF W/WO - B/L INDICATIONS: AAA CONTRAST: IV CONTRAST: Isovue 300 ml: 125 PO CONTRAST: *NO PO CONTRAST TECHNIQUE: After the administration of intravenous contrast, 2 and 5 mm sections acquired from T12 to the feet, with optional delayed image acquisition from the knees to the feet. 3-dimensional maximum intensity projection (MIP) coronal and sagittal reformats, and/or 3-dimensional volume rendering reformatting w as then performed. For radiation dose reduction, the following was used: automated exposure control , adjustment of mA and/or kV according to patient size. COMPARISON: CT examination dated 04/18/2021 FINDINGS: Image quality: Excellent. Extravascular tissues: Lung bases are clear. Heart size is normal. Liver and spleen are normal in size and enhancement. Gallbladder is grossly unremarkable Biliary system is non dilated. Pancreas enhances normally. No adrenal nodules. There is new low density within the inferior pole left kidne y, measuring roughly 35 mm transverse, suggestive of a renal infarct. Kidneys are otherwise normal in size and enhancement, without hydronephrosis. Non opacified bowel loops demonstrate normal wall thi ckness and enhancement. IVC is normal in caliber. Portal and splenic veins are enlarged, suggestive of portal hypertension. No free fluid or air. No retroperitoneal or mesenteric adenopathy. No ventr al hernias. Bladder wall thickness is normal. No inguinal hernias or adenopathy. No suspicious bon y lesions. No vertebral body compression fractures. 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 This is slightly increased. Right lower extremity: There is a high-grade weblike stenosis within the right proximal common iliac artery. There is moderate poststenotic dilatation of the right common iliac artery, measuring roughl y 16 mm short axis, which is slightly increased. Right internal and external iliac arteries are paten t. Mild calcific stenosis of the common femoral artery. Profunda, and superficial femoral arteries ar e patent. Above and below knee popliteal artery is patent. Anterior tibial artery, tibioperoneal trun k, peroneal, and posterior tibial arteries are patent. Left lower extremity: Intra-articular loose bodies within the left knee joint in the intercondylar f stacie. Common, internal, and external iliac arteries are patent. Mild calcific stenosis of the common femoral artery. Profunda femoral artery is patent. Mild multifocal stenoses within the mid and distal superficial femoral artery. Above and below knee popliteal artery is patent. Anterior tibial artery, tibioperoneal trunk, peroneal and posterior tibial arteries are patent. IMPRESSION: 1. 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 2. New left inferior pole renal infarct. 3. High-grade stenosis of the right common iliac artery origin. No left-sided inflow stenosis. 4. No significant outflow stenosis bilaterally. 5. Three-vessel bilateral lower extremity runoff. 6. Findings suggestive of portal hypertension. Reviewed by: Juliet Hemphill MD on 11/07/2021 4:11 PM [place] Approved by: Juliet Hemphill MD on 11/07/2021 4:11 PM [facility] Station ID: [id number]
== END 2021-11-07 11:20 | disposition home or self-care (01) ==
LOC: DI 11:19
PROVIDERS: ATTEND Surgery Vascular Surgery
DX: I71.4 Abdominal aortic aneurysm, without rupture (principal); N28.0 Ischemia and infarction of kidney; I70.8 Atherosclerosis of other arteries
CPT/HCPCS: 36415; 75635; 82565; Q9967

== ENCOUNTER 2021-12-19 08:00 | Outpatient (CLI) | payer MEDICARE, BC | END 2021-12-19 23:59 | disposition home or self-care (01) | LOC: LAB.WCP 08:00 | PROVIDERS: ATTEND Family Medicine | DX: Z01.84 Encounter for antibody response examination (principal); D84.9 Immunodeficiency, unspecified | CPT/HCPCS: 86769 ==

== ENCOUNTER 2021-12-19 14:03 | Outpatient (CLI) | payer MEDICARE, BC ==
--- NOTE | 2021-12-19 16:42 | XRAY Report ---
PROCEDURE: Thoracic Spine 2 View INDICATIONS: THORACIC BACK PX, CHRONIC LYMPHOID LEUKEMIA TECHNIQUE: 3 views of the thoracic spine were acquired. COMPARISON: None. FINDINGS: Bones: No fractures or dislocations. No suspicious bony lesions. 12 pairs of ribs are noted, and a ppear intact where visualized. [id number] degenerative changes noted throughout the thoracic sp ine. Mild facet hypertrophy noted in the mid-lower thoracic spine. Soft tissues: No paravertebral stripe thickening. IMPRESSION: 1. Multilevel degenerative disc disease. 2. Multilevel facet arthropathy. 3. No fracture. No acute osseous lesion. If there is continued clinical concern for pathology, then M RI should be considered for further evaluation. Reviewed by: Mima Kelsey MD, PhD on 12/19/2021 4:40 PM PST Approved by: Mima Kelsey MD, PhD on 12/19/2021 4:40 PM PST Station ID: [id number]
== END 2021-12-19 14:04 | disposition home or self-care (01) ==
LOC: DI.N 14:03
PROVIDERS: ATTEND Family Medicine
DX: C91.10 Chronic lymphocytic leukemia of B-cell type not having achieved remission (principal); M47.814 Spondylosis without myelopathy or radiculopathy, thoracic region; M51.34 Other intervertebral disc degeneration, thoracic region; Z01.84 Encounter for antibody response examination; D84.9 Immunodeficiency, unspecified
CPT/HCPCS: 86769

== ENCOUNTER 2021-12-29 14:26 | Outpatient (CLI) | payer MEDICARE, BC ==
--- NOTE | 2021-12-30 11:28 | CONSULTATION NOTE ---
Palliative Care Follow Up - Referral Referring Provider: Charmaine Islas PA-C Time of Visit: FRIDAY 12/29 1430 45 minutes Referral setting: MAC Referral Reason: Depression/Insomnia/RLS/CLL - Information Sources Records reviewed: RN notes reviewed, Previous records reviewed History/Review of Systems obtained from: Patient Exam limitations: No limitations - History of Present Illness Update Brief HPI Update: This is a clyde 71-year-old woman with CLL with IgM kappa type, continuing on ibrutinib. She is tolerating this fairly well, but continues with persistent fatigue, feelings of hopelessness, fluctuating difficulties with insomnia, and continued isolation related to the pandemic. She had discontinued her sertraline in September, to be able to trial trazodone at bedtime for sleep. This has improved her sleep, but continues with worsening symptoms of depression, though this is multifactorial including most likely complicated grief reaction, isolation secondary to immunosuppression and need to avoid COVID-19 exposure, as well as physically feeling fatigued. Past Medical History: Raynaud's, RLS, anxiety, depression, insomnia, hypertension, COPD, GERD, chronic vision loss, s/p hysterectomy Social History - Living Situation Living arrangement: At home Living Situation: Alone Support System: Patient is over a year ago, remains isolated with minimal community support. They had not had time to really integrate into the community, and now with Covid she has not been able to do volunteer activities are access placed that she might meet new people. She does have friends who check on her regularly, she does have someone coming to visit this weekend and is looking forward to this. Medications/Allergies - Medications Home Medications: Ambulatory Orders Medication Instructions Recorded Confirmed Estradiol 0.05 mg Patch [Climara 0.05 mg TOP ONCE 04/29/18 12/30/21 0.05 mg] oxyCODONE [Roxicodone] 10 mg PO Q4HR PRN 06/01/20 12/30/21 Ibrutinib [Imbruvica] 420 mg PO DAILY 06/21/20 12/30/21 Valacyclovir HCl [Valtrex] 1,000 mg PO DAILY 07/06/20 12/30/21 Biotin 1 cap ORAL DAILY 02/07/21 12/30/21 Cholecalciferol (Vitamin D3) 2,000 unit PO DAILY 02/07/21 12/30/21 [Vitamin D3] busPIRone [Buspar] 5 - 10 mg PO BID 02/07/21 12/30/21 Amlodipine Besylate [Norvasc] 10 mg PO DAILY PM 03/06/21 12/30/21 B-Complex with Vitamin C [Vitamin 1 ea PO DAILY 05/12/21 12/30/21 B-Complex with Vit C] Omeprazole [PriLOSEC] 20 mg PO DAILY 05/12/21 12/30/21 Rosuvastatin Calcium [Crestor] 5 mg PO DAILY 07/07/21 12/30/21 traZODone [Desyrel] 50 mg PO QPM PRN MDD titrating up 09/09/21 12/30/21 to 150 mg Ropinirole HCl 1 mg PO QPM 12/30/21 12/30/21 - Allergies Allergies/Adverse Reactions: Allergies Allergy/AdvReac Type Severity Reaction Status Date / Time cephalexin Allergy Rash Verified 04/04/21 13:28 meperidine [From Demerol] AdvReac Unknown Verified 04/04/21 13:28 Review of Systems - Constitutional Constitutional: reports: Fatigue (persistent and no improvement), Weight gain (reports 35 pounds; no change in intake) - Eyes Eyes: reports: Vision loss, Corrective lenses - Cardiovascular Cardiovascular: reports: Edema (worsening over last few months), Decr. exercise tolerance - Respiratory Respiratory: reports: SOB with exertion. denies: SOB at rest - Gastrointestinal Gastrointestinal: reports: Bloating, Early satiety. denies: Constipation, Diarrhea, Reflux/heartburn - Genitourinary Genitourinary: reports: Frequency, Nocturia - Musculoskeletal Musculoskeletal: reports: Stiffness, Muscle weakness - Integumentary Integumentary: reports: Dryness - Neurological Neurological: reports: Numbness - Psychiatric Psychiatric: reports: Depression (worsening;), Anxiety. denies: Suicidal - All Other Systems All Other Systems: reports: Reviewed and negative Physical Exam - Vital Signs Temperature: 36.3 C Pulse Rate: 79 Respiratory Rate: 18 O2 Saturation: 99 Blood Pressure: 171/89 - Physical Exam General Appearance: positive: Alert, Mild distress (reports no antibodie; fearful of going out with COVID) Eyes Bilateral: positive: Normal inspection Neck: positive: Trachea midline Respiratory: positive: No respiratory distress Skin: positive: Dryness Extremities: positive: Pedal edema (in ankles) Neurologic/Psychiatric: positive: Oriented x3, Depressed mood/affect, Flat affect Palliative Care - POLST Patient has POLST: Yes POLST Status: DNR, Selective Treatment Pain: Pain unchanged, Location (legs mostly at night), Severity Tiredness/Fatigue: Moderate (4-6) Drowsiness/Sedation: Mild (1-3) Nausea: Mild (1-3) Anorexia: Mild (1-3) Dyspnea: Mild (1-3) Depression: Moderate (4-6) Anxiety: Mild (1-3) Feelings of wellbeing/Perceived Quality of Life: Fair, No change Sleep: Sleep improved, Variable sleep pattern Constipation: No Performance Status: Patient is ambulatory and able to manage her own ADLs, she had been hopeful to start a walking program. Her sedentary status is impacted by her isolation as well as her depression. - Palliative Care Discussion: Palliative care discussion centered on her grief which is multifactorial, isolation and complex social situation. Patient denies suicidality, has had difficulty processing grief in the context of ongoing isolation, limited ability to engage in community or community activities secondary to immunocompromise status, and feelings of persistent fatigue. Results - Lab Results Lab results reviewed: Yes Impression and Recommendations - Palliative Care Impression: This is a clyde 71-year-old woman with CLL, currently receiving ibrutinib with good response. She continues to struggle with fluctuating symptoms of fatigue, depression is exacerbated, grief and loss, insomnia, and social isolation. Palliative care continue provide support regarding symptom management, psychosocial support, and anticipatory guidance as needed Recommendations/Counseling Done: 1 Depression. This seems to be exacerbated, unclear what has to do with worsening coming off her sertraline, patient is on trazodone for insomnia and is currently not on therapeutic doses for depression. Counseling provided regarding the spectrum, could return to sertraline and taper off trazodone, patient would like to continue trazodone as it does help with sleep. Explore other medications in the context of interactions particularly with her oral chemo treatment, would also recommend titrating up trazodone to see if she gets a therapeutic response for her depression. She is interested in possibly doing this, instructions given to increase by half tab every 4 to 5 days, can slow titration if increase daytime sleepiness. Unfortunately given her immunocompromise status, is complicated in the context of being able to access further psychosocial support or counseling. 2. Anxiety. This is a fairly persistent problem for her, has had multiple stressors particularly with the isolation the context of COVID-19 and lack of immunity. She does feel the BuSpar 10 mg twice a day is working. 3. RLS. Patient trialed broke Inderal up to 1 mg with good response. She has tapered off lorazepam but continues with oxycodone 10 mg to help with the peripheral neuropathy. She is no longer taking gabapentin. Continue to provide as needed, patient using appropriately. 4. Hypertension. Patient presents with hypertension today, and complaints of lower extremity edema. Patient is currently on amlodipine 10 mg daily. Suspect this is a fairly common side effect of peripheral edema, given currently at maximum dose and not controlling blood pressure encouraged to follow-up with PCP. If needs further support for assistance with this and instructed to contact me. 5. Fatigue. This is multifactorial, she has not been doing her walking program, declines at this time a referral to physical therapy. She does have a friend coming this week and hoping that this will jumpstart her. Encouraged both for the management of fatigue and her depression to reinitiate. 6. Advanced care planning. Patient does have a POLST in place with DN AR/DNI and selective treatments. She continues to weigh her decisions around quality of life, she feels this continues to improve but struggling with current persistent issues around isolation related to Covid and her immunocompromise. Her DPOA for healthcare is her good friend Jodee Wiseman [phone] 45 minutes with review of labs, oncology notes, [id number] for counseling regarding symptom management, psychosocial support and anticipatory guidance
== END 2021-12-29 14:27 | disposition home or self-care (01) ==
LOC: PC 14:26
PROVIDERS: ATTEND Nurse Practitioner Adult Health
DX: Z51.5 Encounter for palliative care (principal); R53.83 Other fatigue; R63.5 Abnormal weight gain; G47.00 Insomnia, unspecified; F32.A Depression, unspecified; F41.9 Anxiety disorder, unspecified; C91.10 Chronic lymphocytic leukemia of B-cell type not having achieved remission; I10 Essential (primary) hypertension; D84.9 Immunodeficiency, unspecified; G25.81 Restless legs syndrome; R60.0 Localized edema; Z79.899 Other long term (current) drug therapy; Z60.8 Other problems related to social environment; Z63.4 Disappearance and death of family member; Z66 Do not resuscitate
CPT/HCPCS: 99215

== ENCOUNTER 2022-01-04 11:13 | Outpatient (CLI) | payer MEDICARE, BC ==
--- NOTE | 2022-01-04 12:49 | Ultrasound Report ---
PROCEDURE: Abdomen LimitedDoppler Complete INDICATIONS: PORTAL HTN TECHNIQUE: Real-time focused scanning was performed of the abdomen, with image documentation. Color and spectra l Doppler imaging was performed. COMPARISON: CT abdomen pelvis 04/18/2021 FINDINGS: The visible portions of the pancreas appear normal. The right kidney is normal in length m easuring 10.3 cm. No hydronephrosis. The gallbladder is normal without stones, sludge, wall thickenin g, or pericholecystic fluid. The liver is normal size with right lobe measuring 14.8 cm in length. The parenchyma is mildly, homog eneously hyperechoic. An ovoid homogeneously hyperechoic mass in the left lobe measures 0.9 cm. In id entical mass in the right lobe also measures 0.9 cm. No other lesions. The liver margin is smooth. Th e common duct is minimally dilated measuring 0.8 cm. No sonographic evidence of choledocholithiasis. The main portal vein is dilated at 2.0 cm and demonstrates appropriate direction of flow. Hepatic vei ns are all patent with appropriate direction of flow and phasicity. Hepatic artery demonstrates an ap propriate waveform with resistive index of 0.73. The splenic vein is patent with appropriate directio n of flow. Splenic artery also demonstrates low resistance arterial waveform. IMPRESSION: 1. Normal size liver with mildly echogenic parenchyma suggesting hepatic steatosis or other intrinsic liver disease. 2. Subcentimeter hepatic hemangiomas. 3. Enlargement of the portal vein, similar compared to the prior exam, but with maintenance of hepato pedal flow. Reviewed by: Deidre Melchor MD on 01/04/2022 12:48 PM PST Approved by: Deidre Melchor MD on 01/04/2022 12:48 PM PST Station ID: [id number]
== END 2022-01-04 11:14 | disposition home or self-care (01) ==
LOC: DI 11:13
PROVIDERS: ATTEND Internal Medicine Hematology & Oncology
DX: K76.6 Portal hypertension (principal); R93.2 Abnormal findings on diagnostic imaging of liver and biliary tract
CPT/HCPCS: 93975

== ENCOUNTER 2022-04-18 15:11 | Outpatient (CLI) | payer MEDICARE, BC ==
--- NOTE | 2022-04-18 15:51 | CONSULTATION NOTE ---
Palliative Care Follow Up - Referral Referring Provider: Charmaine Islas PA-C Time of Visit: 1515 45 minutes Referral setting: MAC Referral Reason: Depression/CLL - Information Sources Records reviewed: Previous records reviewed History/Review of Systems obtained from: Patient Exam limitations: No limitations - History of Present Illness Update Brief HPI Update: This is a clyde 72-year-old woman with CLL with IgM kappa type, continued on ibrutinib it. She has been tolerating this fairly well, but continues with p ersistent fatigue, feelings of hopelessness and depression. She has fluctuating difficulties with insomnia, had maximized trazodone in attempt to address her depression, had pushed it to 150 mg, felt to "weird on it", has been tolerating it 125 mg has been helpful for sleep. Bed not for depression. We had discussed previously about considering adding Abilify, at that point in time though is sti ll working on treatment plan, she has been long-term on both sertraline and trazodone, but has stopped her sertraline when we started trazodone secondary to concern for serotonin syndrome, but given patient's past history and low dose of both medications, is willing to restart and try Atarax. Depression is worsening. Patient also has been dealing with elevated creatinine and lower GFR, this was attributed to the losartan. She had increased lower extremity edema from amlodipine, did not tolerate the losartan with increased kidney function, though it returned to normal after stopping losartan. She had been trialed on metoprolol, but had dizziness and was unable to tolerate this medication as well. She reports her home blood pressures have been okay. She is started on blood pressure medication secondary to headache. At this point time is just watching. She still could be a candidate for some lisinopril.She did decide to go ahead though with the renal ultrasound, but may funeral counselor her appointment with nephrology. Past Medical History: Raynaud's, RLS, anxiety, depression, insomnia, hypertension, COPD, GERD, chronic vision loss, Social History - Living Situation Living arrangement: At home Living Situation: Alone Support System: Patient is , remains isolated with minimal community support. Though she did have a friend recently visited her, continues to be not motivated to set any goals or do anything. She also feels quite isolated with [employer], 05/25/2020 volunteer activities and access to places where she had hoped to meet new people. Does complain having difficulty overall. Medications/Allergies - Medications Home Medications: Ambulatory Orders Medication Instructions Recorded Confirmed Estradiol 0.05 mg Patch [Climara 0.05 mg TOP ONCE 04/29/18 04/18/22 0.05 mg] oxyCODONE [Roxicodone] 10 mg PO Q4HR PRN 06/01/20 04/18/22 Ibrutinib [Imbruvica] 420 mg PO DAILY 06/21/20 04/18/22 Valacyclovir HCl [Valtrex] 1,000 mg PO DAILY 07/06/20 04/18/22 Biotin 1 cap ORAL DAILY 02/07/21 04/18/22 Cholecalciferol (Vitamin D3) 2,000 unit PO DAILY 02/07/21 04/18/22 [Vitamin D3] busPIRone [Buspar] 20 mg PO BID 02/07/21 04/18/22 B-Complex with Vitamin C [Vitamin 1 ea PO DAILY 05/12/21 04/18/22 B-Complex with Vit C] Omeprazole [PriLOSEC] 20 mg PO DAILY 05/12/21 04/18/22 Rosuvastatin Calcium [Crestor] 5 mg PO DAILY 07/07/21 04/18/22 traZODone [Desyrel] 75 mg PO QPM PRN MDD titrating 09/09/21 04/18/22 down to 50 mg Sertraline [Zoloft] 25 mg PO DAILY MDD titrating to 50 04/18/22 04/18/22 mg - Allergies Allergies/Adverse Reactions: Allergies Allergy/AdvReac Type Severity Reaction Status Date / Time cephalexin Allergy Rash Verified 04/04/21 13:28 meperidine [From Demerol] AdvReac Unknown Verified 04/04/21 13:28 Review of Systems - Constitutional Constitutional: reports: Fatigue (persistent and no improvement, unclear physical or emotional or both), Weight gain (reports 35 pounds; no change in intake) - Eyes Eyes: reports: Vision loss, Corrective lenses - Ears, Nose & Throat Ears, Nose & Throat: reports: Dry mouth - Cardiovascular Cardiovascular: reports: Decr. exercise tolerance. denies: Edema - Respiratory Respiratory: reports: SOB with exertion. denies: SOB at rest - Gastrointestinal Gastrointestinal: denies: Constipation, Diarrhea, Reflux/heartburn - Musculoskeletal Musculoskeletal: reports: Stiffness, Muscle weakness - Integumentary Integumentary: reports: Dryness - Neurological Neurological: reports: Numbness - Psychiatric Psychiatric: reports: Depression (worsening;), Anxiety. denies: Suicidal (denies) - Hematologic/Lymphatic Hematologic/Lymph: reports: Anemia. denies: Recurrent infections (recent treatment of toe; still no healed but no s/s infection) - All Other Systems All Other Systems: reports: Other (limited review focused on depression) Physical Exam - Vital Signs Pulse Rate: 76 Respiratory Rate: 16 Blood Pressure: 145/95 - Physical Exam General Appearance: positive: Alert, Mild distress (with depression) Eyes Bilateral: positive: Normal inspection Neck: positive: Trachea midline Respiratory: positive: No respiratory distress Skin: positive: Dryness Neurologic/Psychiatric: positive: Oriented x3, Depressed mood/affect, Flat affect Palliative Care - POLST Patient has POLST: Yes POLST Status: DNR, Selective Treatment Pain: No pain Tiredness/Fatigue: Moderate (4-6) Drowsiness/Sedation: None Nausea: Mild (1-3) Anorexia: Mild (1-3) Dyspnea: None Depression: Moderate (4-6) Anxiety: Mild (1-3) Feelings of wellbeing/Perceived Quality of Life: Fair, Worsening Sleep: Variable sleep pattern Performance Status: Patient had initiated [place] track workout, I done it consistently for couple weeks but had essentially given that up cannot remember why, but has not restart ed. Patient has been encouraged to exercise, just does not feel motivated in any way shape or form. Again encouraged if there was anything that could provide motivation to engage in increased activity can would help with her underlying depression as well as her endurance and physical wellbeing - Palliative Care Discussion: Patient and made a as needed visit with palliative care [employer], have had multiple discussions regarding her depression. Patient does not feel motivated, perceives herself as depressed, can identify multiple reasons regarding this, fe eling stuck, grief reaction, political situation, and ongoing isolation secondary to COVID. She had been stable previously on sertraline and trazodone in the past, after much discussion weighing benefits and burdens of changing of medications versus trying to return to previous, we will go ahead and restart medications previously on.Support provided for ongoing difficult journey, continues to struggle with healthcare system. Results - Lab Results Lab results reviewed: Yes Impression and Recommendations - Palliative Care Impression: This is a clyde 72-year-old woman with CLL, currently receiving ibrutinib with good response. She continues to struggle with fluctuating symptoms of fatigue, worsening depression, grief and loss, insomnia and social isolation. Palliative care continue provide support regarding symptom management, psychosocial support and anticipatory guidance as needed Recommendations/Counseling Done: 1. Depression. This seems to be exacerbated, counseling provided regarding options, final decision was to titrate back trazodone, will start with washout with trazodone 75 mg for 1 week, then decrease to 50 mg, 50 mg tabs ordered. At this point on second we will start with sertraline 25 mg for 1 week then add 2nd-50 milligrams. These are both low dose, decreased incidence of serotonin syndrome, patient has been educated to evaluate response and for signs or symptoms of side effects. 2. Hypertension. Patient was taken off of amlodipine secondary to swelling. Patient had been trialed on losartan, with increased creatinine and decreasing kidney function. She has had labs in the meantime, reports this is stabilized. She has been trialed on metoprolol with side effects. Currently managing with no blood pressure meds, prior to that she had headache, reports this has not reoccurred. She is monitoring at home. 3. Fatigue. This is multifactorial, she has still not initiated her walking program or activity. She also is experiencing depression, and unexplained "urticaria over the last few months. Encouraged to increase activity as well as well treat depression. 5 minutes with review of labs, oncology notes, PCP summary [id number] for counseling regarding depression and prescribing, as well as anticipatory guidance
== END 2022-04-18 15:12 | disposition home or self-care (01) ==
LOC: PC 15:11
PROVIDERS: ATTEND Nurse Practitioner Adult Health
DX: Z51.5 Encounter for palliative care (principal); F32.A Depression, unspecified; I10 Essential (primary) hypertension; R53.83 Other fatigue; Z66 Do not resuscitate
CPT/HCPCS: 99215

== ENCOUNTER 2022-04-18 15:46 | Outpatient (CLI) | payer MEDICARE, BC ==
[2022-04-18] MEDS ORDERED: IOVERSOL 320 100 ML VIAL IVP ONE ×2 (16:18→20:27)
--- NOTE | 2022-04-19 09:16 | CT Report ---
PROCEDURE: ANGIO ABD RUNOFF W/WO - B/L INDICATIONS: AAA CONTRAST: IV CONTRAST: Optiray 320 ml: 125 PO CONTRAST: *NO PO CONTRAST TECHNIQUE: After the administration of intravenous contrast, 2 and 5 mm sections acquired from T12 to the feet, with optional delayed image acquisition from the knees to the feet. 3-dimensional maximum intensity projection (MIP) coronal and sagittal reformats, and/or 3-dimensional volume rendering reformatting w as then performed. For radiation dose reduction, the following was used: automated exposure control , adjustment of mA and/or kV according to patient size. COMPARISON: 04/18/2021 CT of the abdomen and pelvis with contrast, 11/07/2021 CT angiogram of the abd omen and pelvis with runoff. FINDINGS: Image quality: Excellent. Extravascular tissues: Lung bases are clear. Heart size is normal. Severe coronary artery calcifica tions. No liver masses. Splenomegaly again noted. Development of infarct involving the superior aspec t of the spleen. Enlarged caliber of splenic vein and portal vein suggests possible portal venous hyp ertension. Gallbladder is unremarkable. Biliary system is non dilated. Pancreas enhances normally. No adrenal nodules. Again noted is a lower pole left renal infarct. Non opacified bowel loops demons trate normal wall thickness and enhancement. No free fluid or air. No retroperitoneal or mesenteric adenopathy. No ventral hernias. Bladder wall thickness is normal. No inguinal hernias or adenopat hy. No suspicious bony lesions. No vertebral body compression fractures. Abdominal aorta: The appearance of the distal aorta was previously described as having a pseudoaneur ysm. However, the appearance, to me, is consistent with a focal aortic dissection. The false lumen co ntains mild thrombus. The overall dimensions of the aneurysmal segment are not significantly changed. On image 100 and series 6, the overall diameter is 2.8 x 3.5 cm. Previous measurement was 3.5 cm. Th ere is a dissection that extends minimally into the right common iliac artery. The right common iliac artery is ectatic but not frankly aneurysmal, and measures 1.8 cm. Right lower extremity: Dissection extends minimally into the origin of the right common iliac artery . Right common iliac is ectatic but not aneurysmal. The dissection flap results in a focal severe com mon iliac artery stenosis. The external iliac is patent. Moderate to severe coronary artery calcifica tions. Common femoral is widely patent. SFA has mild diffuse disease, as does the popliteal. There ar e 3 patent runoff vessels. Left lower extremity: Common iliac, external iliac, and common femoral are patent. Mild diffuse SFA disease. Mild popliteal disease. 3 runoff vessels are continuous. IMPRESSION: 1. The appearance of the distal aorta is consistent with a infrarenal abdominal aortic dissection. Th e resultant aneurysmal segment is stable, measuring 3.5 cm. 2. Dissection does extend into the right common iliac artery, and the flap of the dissection results in a severe right common iliac artery stenosis. 3. No hemodynamically significant stenotic disease involving the bilateral lower extremities. Three-v essel runoff bilaterally. 4. Splenomegaly, with interval development of a splenic infarct. 5. Findings suggesting portal venous hypertension. 6. Lower pole left renal infarct, as before. 7. Severe coronary artery calcifications. Reviewed by: Keith Owen MD on 04/19/2022 9:15 AM PDT Approved by: Keith Owen MD on 04/19/2022 9:15 AM PDT Station ID: [id number]
== END 2022-04-18 15:47 | disposition home or self-care (01) ==
LOC: DI 15:46
PROVIDERS: ATTEND Surgery Vascular Surgery
DX: I71.4 Abdominal aortic aneurysm, without rupture (principal); I70.8 Atherosclerosis of other arteries; D73.5 Infarction of spleen; R16.1 Splenomegaly, not elsewhere classified; N28.0 Ischemia and infarction of kidney; I25.10 Atherosclerotic heart disease of native coronary artery without angina pectoris
CPT/HCPCS: 75635; Q9967

== ENCOUNTER 2022-05-23 14:07 | Outpatient (CLI) | payer MEDICARE, BC ==
[2022-05-23 14:28] LABS: BILIRUBIN,URINE NEGATIVE (NEGATIVE); GLUCOSE, URINE (UA) NEGATIVE (NEGATIVE); KETONES,URINE (UA) NEGATIVE (NEGATIVE); LEUKOCYTE ESTERASE, URINE NEGATIVE (NEGATIVE); NITRITE,URINE NEGATIVE (NEGATIVE); OCCULT BLOOD,URINE MODERATE (NEGATIVE); PH,URINE 6.5 PH (5.0-7.5); PROTEIN,URINE NEGATIVE (NEGATIVE); UROBILINOGEN,URINE 0.2 (NORMAL) E.U./dL (NORMAL)
[2022-05-23 14:29] LABS: CLARITY,URINE CLEAR (CLEAR)
[2022-05-23 14:43] LABS: BACTERIA,URINE Rare /HPF (None Seen); SQUAMOUS EPITHELIAL CELL,UR FEW Squamous (<= Few); WBC,URINE 0-3 /HPF (0-5)
[2022-05-23 14:43] LABS: CREATININE,URINE 47.9 mg/dL; MICROALBUM/CREATININE RATIO,UR 16.7 ug/mg (<30.0); MICROALBUMIN,URINE 0.8 mg/dL (0-300.0)
== END 2022-05-23 14:08 | disposition home or self-care (01) ==
LOC: LAB 14:07
PROVIDERS: ATTEND Nurse Practitioner Family
DX: N17.9 Acute kidney failure, unspecified (principal)
CPT/HCPCS: 81001; 82043; 82570; 84300

== ENCOUNTER 2022-08-31 12:57 | Outpatient (CLI) | payer MEDICARE, BC ==
[2022-08-31 14:45] LABS: BILIRUBIN,URINE NEGATIVE (NEGATIVE); GLUCOSE, URINE (UA) NEGATIVE (NEGATIVE); KETONES,URINE (UA) NEGATIVE (NEGATIVE); LEUKOCYTE ESTERASE, URINE NEGATIVE (NEGATIVE); NITRITE,URINE NEGATIVE (NEGATIVE); OCCULT BLOOD,URINE SMALL (NEGATIVE); PROTEIN,URINE NEGATIVE (NEGATIVE); UROBILINOGEN,URINE 0.2 (NORMAL) E.U./dL (NORMAL)
[2022-08-31 14:50] LABS: CLARITY,URINE CLEAR (CLEAR)
[2022-08-31 15:29] LABS: BACTERIA,URINE Rare /HPF (None Seen); SQUAMOUS EPITHELIAL CELL,UR FEW Squamous (<= Few); WBC,URINE 0-3 /HPF (0-5)
[2022-08-31 15:54] LABS: CREATININE,URINE 37.5 mg/dL
[2022-08-31 16:17] LABS: TOTAL PROTEIN,URINE TIMED < 6 mg/dL
== END 2022-08-31 12:58 | disposition home or self-care (01) ==
LOC: LAB 12:57
PROVIDERS: ATTEND Internal Medicine
DX: I12.9 Hypertensive chronic kidney disease with stage 1 through stage 4 chronic kidney disease, or unspecified chronic kidney disease (principal); N18.31 Chronic kidney disease, stage 3a; C91.90 Lymphoid leukemia, unspecified not having achieved remission
CPT/HCPCS: 36415; 81001; 82570; 84100; 84156; 87086

== ENCOUNTER 2022-12-04 12:50 | Outpatient (CLI) | payer MEDICARE, BC ==
[2022-12-04 13:08] LABS: BASOPHILS % (AUTO) 0.5 %; EOSINOPHILS % (AUTO) 0.5 %; HCT - HEMATOCRIT 41.6 % (37.0-47.0); HGB - HEMOGLOBIN 13.7 g/dL (12.0-16.0); LYMPHOCYTES # (AUTO) 0.7 10^3/uL (1.5-3.5); LYMPHOCYTES % (AUTO) 16.7 %; MEAN CORPUSCULAR HGB CONC 32.9 g/dL (32.0-36.0); MEAN CORPUSCULAR VOLUME 94.1 fL (81.0-99.0); MEAN PLATELET VOLUME 10.9 fL (7.9-10.8); MONOCYTES # (AUTO) 0.5 10^3/uL (0.0-1.0); MONOCYTES % (AUTO) 12.1 %; NEUTROPHILS # (AUTO) 2.8 10^3/uL (1.5-6.6); NEUTROPHILS % (AUTO) 69.7 %; PLT - PLATELET COUNT 138 10^3/uL (130-450); RED BLOOD COUNT 4.42 10^6/uL (4.20-5.40); RED CELL DISTRIBUTION WIDTH 12.8 % (12.0-15.0); WHITE BLOOD COUNT 4.1 x10^3/uL (4.8-10.8)
[2022-12-04 13:27] LABS: ALBUMIN 4.6 g/dL (3.2-5.5); ALBUMIN/GLOBULIN RATIO 2.1 (1.0-2.2); BILIRUBIN,TOTAL 1.2 mg/dL (0.2-1.0); CALCIUM 9.2 mg/dL (8.5-10.3); POTASSIUM 4.1 mmol/L (3.5-5.0); TOTAL PROTEIN 6.8 g/dL (6.7-8.2)
[2022-12-05 08:09] LABS: IMMUNOGLOBULIN A 14 mg/dL (64-422); IMMUNOGLOBULIN G 205 mg/dL (586-1602); IMMUNOGLOBULIN M 393 mg/dL (26-217)
[2022-12-06 14:09] LABS: ALBUMIN 4.1 g/dL (2.9-4.4); ALPHA-1-GLOBULIN 0.2 g/dL (0.0-0.4); ALPHA-2-GLOBULIN 0.6 g/dL (0.4-1.0); BETA GLOBULIN 0.7 g/dL (0.7-1.3); GAMMA GLOBULIN 0.5 g/dL (0.4-1.8); GLOBULIN, TOTAL 2.1 g/dL (2.2-3.9); PROTEIN TOTAL 6.2 g/dL (6.0-8.5)
== END 2022-12-04 12:51 | disposition home or self-care (01) ==
LOC: LAB 12:50
PROVIDERS: ATTEND Internal Medicine Hematology & Oncology
DX: C85.90 Non-Hodgkin lymphoma, unspecified, unspecified site (principal); D47.2 Monoclonal gammopathy
CPT/HCPCS: 36415; 80053; 82784; 83615; 84155; 84165; 85025

== ENCOUNTER 2022-12-31 14:35 | Outpatient (CLI) | payer MEDICARE, BC ==
--- NOTE | 2023-01-01 09:45 | Mammography Report ---
BILATERAL DIGITAL SCREENING MAMMOGRAM 3D/2D: 12/31/2022 CLINICAL: Routine screening. Personal history of left breast cancer. Comparison is made to exams dated: 09/08/2021 mammogram, 08/22/2020 mammogram, 03/07/2019 mammogram, a nd 01/01/2018 mammogram - [facility]. Both breasts are extremely dense, which lowers the sensitivity of mammography (category d />75% gland ular tissue). There is a possible asymmetry in the right breast posterior depth lateral region seen on the cranioca udal view only. There also is a new focal asymmetry in the right breast at 3 o'clock middle depth. No other significant masses, calcifications, or other findings are seen in either breast. IMPRESSION: INCOMPLETE: NEEDS ADDITIONAL IMAGING EVALUATION The possible asymmetry in the right breast posterior depth lateral region seen on the craniocaudal vi ew only is indeterminate. Additional views with possible ultrasound are recommended. The new focal asymmetry in the right breast at 3 o'clock middle depth is indeterminate. Additional v iews with possible ultrasound are recommended. Based on the Tyrer Cuzick model (a risk assessment model) the patients lifetime risk is 8.5% and her 10 year risk is 5.8%. According to the ACR, ACS, and NCCN guidelines, an annual breast MRI exam amos g with mammogram is recommended if the patients lifetime risk is 20% or greater. This exam was interpreted at Station ID: [id number]. NOTE: For mammograms, a report in lay terms will be sent to the patient. Approximately 15% of breast malignancies will not be visualized mammographically. In the management of a palpable breast mass, a negative mammogram must not discourage biopsy of a clinically suspicious lesion. Electronically Signed By: Maksim Parker M.D., jr/renetta:12/31/2022 15:37:53 ACR BI-RADS Category 0: Incomplete 3340F PARENCHYMAL PATTERN: (VD) - The breast(s) demonstrate(s) extremely dense parenchyma, limiting the sen sitivity of mammography. BI-RADS CATEGORY: (0) - 0 Mammo and [place] [id number] Immediate follow-up LATERALITY: (B)
== END 2022-12-31 14:36 | disposition home or self-care (01) ==
LOC: DI 14:35
DX: Z12.31 Encounter for screening mammogram for malignant neoplasm of breast (principal); R92.8 Other abnormal and inconclusive findings on diagnostic imaging of breast; Z85.3 Personal history of malignant neoplasm of breast

== ENCOUNTER 2022-12-31 14:36 | Outpatient (CLI) | payer MEDICARE, BC | END 2022-12-31 14:37 | disposition home or self-care (01) | LOC: DI 14:36 | PROVIDERS: ATTEND Nurse Practitioner Family | DX: Z53.9 Procedure and treatment not carried out, unspecified reason (principal) ==

== ENCOUNTER 2023-01-22 10:11 | Outpatient (CLI) | payer MEDICARE, BC ==
--- NOTE | 2023-01-24 17:01 | Mammography Report ---
UNILATERAL RIGHT DIGITAL DIAGNOSTIC MAMMOGRAM 3D/2D: 01/22/2023 CLINICAL: Patient returns today to evaluate asymmetries in the right breast. Comparison is made to exams dated: 08/22/2020 mammogram, 09/08/2021 mammogram, 12/31/2022 mammogram, mammogram, and 01/01/2018 mammogram - [facility]. The right breast is extremely dense, which lowers the sensitivity of mammography (category d />75% gl andular tissue). There is a mass in the right breast at 3 o'clock middle depth. This is seen in additional views. The possible asymmetry in the right breast posterior depth lateral region seen on the craniocaudal vi ew only is no longer seen and is consistent with fibroglandular tissue. This is not seen in addition al views. No other significant masses or calcifications are seen in the breast. IMPRESSION: INCOMPLETE: NEEDS ADDITIONAL IMAGING EVALUATION The mass in the right breast at 3 o'clock middle depth is indeterminate. An ultrasound is recommende d. Based on the Tyrer Cuzick model (a risk assessment model) the patients lifetime risk is 8.5% and her 10 year risk is 5.8%. According to the ACR, ACS, and NCCN guidelines, an annual breast MRI exam amos g with mammogram is recommended if the patients lifetime risk is 20% or greater. This exam was interpreted at Station ID: [id number]. NOTE: For mammograms, a report in lay terms will be sent to the patient. Approximately 15% of breast malignancies will not be visualized mammographically. In the management of a palpable breast mass, a negative mammogram must not discourage biopsy of a clinically suspicious lesion. Electronically Signed By: Maksim Parker M.D., jr/renetta:01/22/2023 12:43:24 ACR BI-RADS Category 0: Incomplete 3340F PARENCHYMAL PATTERN: (VD) - The breast(s) demonstrate(s) extremely dense parenchyma, limiting the sen sitivity of mammography. BI-RADS CATEGORY: (0) - 0 Ultrasound [id number] Immediate follow-up LATERALITY: (B)
--- NOTE | 2023-01-24 17:01 | Ultrasound Report ---
LIMITED ULTRASOUND OF RIGHT BREAST AND AXILLA: 01/22/2023 CLINICAL: Patient returns today to evaluate a focal asymmetry in the right breast. Comparison is made to exams dated: 01/22/2023 mammogram, 12/31/2022 mammogram, 09/08/2021 mammogram, mammogram, 03/07/2019 mammogram, and 01/01/2018 mammogram - [facility] with [facility]. Color flow ultrasound of the right breast 2 o'clock, and axilla regions was performed. Robert scale im ages of the real-time examination were reviewed. There is an oval mass in the right breast at 3 o'clock middle depth. This oval mass is hypoechoic wi th posterior acoustic shadowing. Color flow imaging demonstrates that there is vascularity present. IMPRESSION: SUSPICIOUS OF MALIGNANCY The oval mass in the right breast is suspicious of malignancy. An ultrasound guided biopsy is recomm ended. This exam was interpreted at Station ID: [id number]. Electronically Signed By: Maksim Parker M.D. jr/:01/23/2023 16:03:15 Ultrasound BI-RADS: 4 Suspicious for malignancy BI-RADS CATEGORY: (4) - 4 Biopsy [id number] Immediate follow-up LATERALITY: (R)
== END 2023-01-22 10:12 | disposition home or self-care (01) ==
LOC: DI 10:11
PROVIDERS: ATTEND Nurse Practitioner Family
DX: N63.15 Unspecified lump in the right breast, overlapping quadrants (principal)

== ENCOUNTER 2023-02-07 11:54 | Outpatient (CLI) | payer MEDICARE, BC ==
[~2023-02-07 11:54] MED LIST changes: -CEPHALEXIN 250 MG Prepack 8 CAP BOTTLE PO ONE; +LIDOCAINE 1%-EPI 1:100000 20 ML MDV ONE; +LIDOCAINE-MPF 1% 5 ML VIAL ONE
[2023-02-07] MEDS ORDERED: LIDOCAINE-MPF 1% 5 ML VIAL TD ONE (13:27)
[2023-02-07] MEDS ORDERED: LIDOCAINE 1%-EPI 1:100000 20 ML MDV SUBQ ONE (13:28)
--- NOTE | 2023-02-08 11:03 | Mammography Report ---
UNILATERAL RIGHT DIGITAL DIAGNOSTIC MAMMOGRAM POST-PROCEDURE IMAGING FOR MARKER PLACEMENT: 02/07/2023 CLINICAL: Post right breast ultrasound biopsy clip placement imaging. Comparison is made to exams dated: 01/22/2023 mammogram, 12/31/2022 mammogram, 09/08/2021 mammogram, mammogram, 03/07/2019 mammogram, and 01/01/2018 mammogram - [facility]. The right breast is extremely dense, which lowers the sensitivity of mammography (category d />75% gl andular tissue). There is a marker clip in the appropriate position in the right breast at 2 o'clock anterior depth. This marker clip placement is at the biopsy site. IMPRESSION: POST PROCEDURE MAMMOGRAM FOR MARKER PLACEMENT There was a successful marker clip placement in the right breast anterior depth. Based on the Tyrer Cuzick model (a risk assessment model) the patients lifetime risk is 8.5% and her 10 year risk is 5.8%. According to the ACR, ACS, and NCCN guidelines, an annual breast MRI exam amos g with mammogram is recommended if the patients lifetime risk is 20% or greater. This exam was interpreted at Station ID: [id number]. NOTE: For mammograms, a report in lay terms will be sent to the patient. Approximately 15% of breast malignancies will not be visualized mammographically. In the management of a palpable breast mass, a negative mammogram must not discourage biopsy of a clinically suspicious lesion. Electronically Signed By: Fabien price/penrad:02/07/2023 17:01:21 ACR BI-RADS Category Post-procedure mammogram for marker placement PARENCHYMAL PATTERN: (VD) - The breast(s) demonstrate(s) extremely dense parenchyma, limiting the sen sitivity of mammography. BI-RADS CATEGORY: () - Unspecified - other recall n/a LATERALITY: (B)
--- NOTE | 2023-02-11 11:44 | Ultrasound Report ---
ULTRASOUND GUIDED BIOPSY RIGHT BREAST USING VACUUM DEVICE WITH MARKING DEVICE INSERTED AND POST DIGIT AL MAMMOGRAPHIC IMAGIN02/07/2023 CLINICAL: Right breast mass. PATIENT CONSENT: Risks (minor bleeding, infection, vasovagal reaction and repeat procedure), benefits and alternatives were explained to the patient and written informed consent was obtained. Correlation is made to exams dated: 02/07/2023 mammogram, 01/22/2023 ultrasound, 01/22/2023 mammogram, 12/31/2022 mammogram, 09/08/2021 mammogram, and 08/22/2020 mammogram - [facility]. An ultrasound guided biopsy using real-time ultrasound was performed for the nodule located in the ri t breast at 2 o'clock anterior depth. This was described on the previous ultrasound report. The skin was prepped in the usual manner. Local anesthetic was administered to the access site. A s mall incision was made in the breast. The abnormality was approached from the caudocranial aspect. A biopsy needle was placed adjacent to the abnormality under ultrasound guidance. Once the needle wa s documented to be in the correct location, three specimens were obtained using the Mammotome biopsy system. A clip was inserted into the biopsy cavity. A skin adhesive was applied to the access site. Post pr ocedure digital mammographic imaging was obtained. The specimens were sent to the laboratory for pat hological analysis. IMPRESSION: ULTRASOUND GUIDED BIOPSY BENIGN Ultrasound guided biopsy of the nodule in the right breast at 2 o'clock anterior depth was successful with no apparent post procedure complications. Pathology indicates benign focal dense breast tissue. Pathology results are concordant with imaging findings. A follow-up ultrasound in 6 months is recommended to demonstrate stability. This exam was interpreted at Station ID: [id number]. Fabien price,slc/:02/11/2023 10:04:27 BI-RADS CATEGORY: () - Ultrasound [id number] 6 month follow-up LATERALITY: (B)
== END 2023-02-07 11:55 | disposition home or self-care (01) ==
LOC: DI 11:54
PROVIDERS: ATTEND Nurse Practitioner Family
DX: R92.8 Other abnormal and inconclusive findings on diagnostic imaging of breast (principal); N63.12 Unspecified lump in the right breast, upper inner quadrant
CPT/HCPCS: 19083

== ENCOUNTER 2023-02-21 15:13 | Outpatient (CLI) | payer MEDICARE, BC ==
--- NOTE | 2023-02-21 16:59 | DEXA Report ---
PROCEDURE: Dexa Spine and/or Hip INDICATIONS: POST MENOPAUSAL TECHNIQUE: Dual energy x-ray absorptiometry (DXA) was performed on a Gungroo System. Regions measur ed are the AP Spine, femoral neck, and if needed forearm. COMPARISON: None. FINDINGS: Lumbar Spine: Bone Mineral Density 1.5-7 g/cm/cm,T score 2.9. Left Femoral Neck: Bone Mineral Density 1.049 g/cm/cm, T score 0.1. Left Hip: Bone Mineral Density 1.083 g/cm/cm,T score 0.6. (T score greater or equal to -1.0: NORMAL) (T score from -1.1 to -2.4: OSTEOPENIA) (T score less than or equal to -2.5 to: OSTEOPOROSIS) Impression: Normal bone mineral density. Patients with diagnosis of osteoporosis or osteopenia should have regular bone mineral density assess ment. For those eligible for Medicare, routine testing is allowed once every 2 years. Testing frequ ency can be increased for patients who have rapidly progressing disease or for those who are receivin g medical therapy to restore bone mass. Reviewed by: Fabien Long MD on 02/21/2023 4:57 PM PDT Approved by: Fabien Long MD on 02/21/2023 4:57 PM PDT Station ID: [id number]
== END 2023-02-21 15:14 | disposition home or self-care (01) ==
LOC: DI 15:13
PROVIDERS: ATTEND Nurse Practitioner Family
DX: Z78.0 Asymptomatic menopausal state (principal)

== ENCOUNTER 2024-02-07 08:00 | Outpatient (CLI) | payer MEDICARE, BC | END 2024-02-07 23:59 | disposition home or self-care (01) | LOC: PC 08:00 | PROVIDERS: ATTEND Nurse Practitioner Adult Health | DX: Z51.5 Encounter for palliative care (principal); C91.10 Chronic lymphocytic leukemia of B-cell type not having achieved remission; Z79.899 Other long term (current) drug therapy; R53.83 Other fatigue; R19.7 Diarrhea, unspecified; G47.00 Insomnia, unspecified; G25.81 Restless legs syndrome; R10.30 Lower abdominal pain, unspecified; I10 Essential (primary) hypertension; F41.8 Other specified anxiety disorders; M54.50 Low back pain, unspecified; G89.29 Other chronic pain; Z79.891 Long term (current) use of opiate analgesic; Z60.8 Other problems related to social environment; Z87.891 Personal history of nicotine dependence; Z66 Do not resuscitate | CPT/HCPCS: 99215 ==

== ENCOUNTER 2024-03-05 13:47 | Outpatient (CLI) | payer MEDICARE, BC ==
--- NOTE | 2024-03-05 16:51 | CT Report ---
PROCEDURE: Abdomen/Pelvis WO INDICATIONS: AAA TECHNIQUE: A CT scan of the abdomen and pelvis was performed without the use of intravenous contrast. Images we re recorded and evaluated at appropriate window settings. Reformats: coronal and sagittal. For radiat ion dose reduction, the following was used: automated exposure control, adjustment of mA and/or kV ac cording to patient size. COMPARISON: CT of the abdomen dated 11/08/2023. CT of the abdomen dated 04/18/2022. FINDINGS: Image quality: Diagnostic. Lower chest: Unremarkable. Liver: No contour-deforming mass. A circumscribed low-density subcentimeter cystic lesion is present within the lower right hepatic lobe. Gallbladder and biliary tree: Spleen: No splenomegaly. Pancreas: No pancreatic ductal dilation. Adrenals: No adrenal nodule. Kidneys and ureters: No hydronephrosis. No renal cystic lesion which requires follow up. No solid mas s. Stomach, bowel and peritoneum: No bowel distension. No pathologic free fluid. The appendix is thin-wa lled and gas-filled. There are scattered sigmoid colon diverticular outpouchings. No mucosal thickeni ng or pericolonic fat stranding. Lymph nodes: No central or retroperitoneal adenopathy. Vessels: Scattered atheromatous calcifications are present within the abdominal aorta. There is fusif orm dilatation of the infrarenal abdominal aorta which measures up to 3.2 cm in oblique axial diamete r (series 2/image 70). This is unchanged from the study dated 11/08/2023. In the absence of contrast, the true and false lumen of the previously visualized aortic dissection cannot be evaluated. PELVIS Reproductive organs: The uterus is not visualized and may be surgically absent. The left ovary is chavo ssly unremarkable. There is a 3.5 cm low-density cyst within the right ovary which is increased in si ze when compared with the study dated 11/08/2023. Bladder: No wall thickness, accounting for underdistention. Pelvic lymph nodes: No pelvic adenopathy by size criteria. Bones: No aggressive osseous abnormality. Other: No significant ventral or inguinal hernia. IMPRESSION: 1. Incomplete evaluation of the previous aortic dissection in the absence of intravenous contrast. Al though the overall size of the abdominal aorta is unchanged, characterization of the true and false l umen is incomplete in the absence of contrast. 2. No acute intra-abdominal findings. Normal appendix. Diverticulosis. No acute diverticulitis. 3. 3.5 cm low-density right ovarian cyst. Further characterization with ultrasound is recommended. Reviewed by: Linda Mcwilliams MD on 03/05/2024 4:49 PM PDT Approved by: Linda Mcwilliams MD on 03/05/2024 4:49 PM PDT Station ID: [id number]
== END 2024-03-05 13:48 | disposition home or self-care (01) ==
LOC: DI 13:47
PROVIDERS: ATTEND Surgery Vascular Surgery
DX: I71.40 Abdominal aortic aneurysm, without rupture, unspecified (principal); N83.201 Unspecified ovarian cyst, right side

== ENCOUNTER 2024-03-20 16:47 | Outpatient (CLI) | payer MEDICARE, BC ==
--- NOTE | 2024-03-21 21:12 | Ultrasound Report ---
PROCEDURE: Pelvic w/Transvaginal INDICATIONS: OVARIAN CYST TECHNIQUE: Real-time scanning was performed of the pelvic organs, with image documentation. Additional endovagi nal scanning was necessary due to incomplete visualization of the adnexal and endometrial structures by transabdominal scanning. COMPARISON: CT of the abdomen dated FINDINGS: Uterus: Surgically absent. Ovaries: The right ovary measures 6.6 x 5.4 x 4.7 cm, with a calculated ovarian volume of 88.5 cc. The left ovary measures 2.7 x 1.8 x 2.7 cm, with a calculated ovarian volume of 6.8 cc. The left ovar y is not well characterized sonographically. The right ovary contains multiple cystic lesions. Some o f these have a simple anechoic appearance with thin septations, some have mural nodules present. No d efinite vascularity visualized. The 3 largest right ovarian cysts measure 2.5 x 2.0 x 2.3 cm, 2.3 x 2 .4 x 4.2 cm and 1.9 x 2.2 x 2.8 cm. IMPRESSION: 1. Multicystic appearance of the right ovary comprised of both simple appearing and more complex appe aring cystic lesions. This is an abnormal finding in a postmenopausal female, and ovarian neoplasm ca nnot be excluded. If further characterization is warranted, gynecological protocol MRI could be used. Additionally, gynecology consultation recommended if not already performed. Reviewed by: Linda Mcwilliams MD on 03/21/2024 9:11 PM PDT Approved by: Linda Mcwilliams MD on 03/21/2024 9:11 PM PDT Station ID: [id number]
== END 2024-03-20 16:48 | disposition home or self-care (01) ==
LOC: DI 16:47
PROVIDERS: ATTEND Nurse Practitioner Family
DX: N83.291 Other ovarian cyst, right side (principal)

== ENCOUNTER 2024-04-01 14:16 | Outpatient (CLI) | payer MEDICARE, BC | END 2024-04-01 14:17 | disposition home or self-care (01) | LOC: LAB 14:16 | PROVIDERS: ATTEND Nurse Practitioner Family | DX: N83.201 Unspecified ovarian cyst, right side (principal) | CPT/HCPCS: 36415; 86304 ==

== ENCOUNTER 2024-05-13 12:34 | Outpatient (CLI) | payer MEDICARE, BC | END 2024-05-13 12:35 | disposition home or self-care (01) | LOC: LAB 12:34 | PROVIDERS: ATTEND Obstetrics & Gynecology Gynecologic Oncology | DX: R19.00 Intra-abdominal and pelvic swelling, mass and lump, unspecified site (principal) | CPT/HCPCS: 36415; 86304 ==

== ENCOUNTER 2024-05-13 13:10 | Outpatient (CLI) | payer MEDICARE, BC | END 2024-05-13 23:59 | disposition home or self-care (01) | LOC: PC 13:10 | PROVIDERS: ATTEND Nurse Practitioner Adult Health | DX: Z51.5 Encounter for palliative care (principal); M54.6 Pain in thoracic spine; N83.201 Unspecified ovarian cyst, right side; F41.8 Other specified anxiety disorders; C91.10 Chronic lymphocytic leukemia of B-cell type not having achieved remission; I10 Essential (primary) hypertension; Z79.899 Other long term (current) drug therapy | CPT/HCPCS: 99214 ==

== ENCOUNTER 2024-06-11 08:00 | Outpatient (CLI) | payer MEDICARE, BC | END 2024-06-11 23:59 | disposition home or self-care (01) | LOC: LAB.N 08:00 | PROVIDERS: ATTEND Physician Assistant | DX: N30.00 Acute cystitis without hematuria (principal) | CPT/HCPCS: 87077; 87086; 87181 ==

== ENCOUNTER 2024-06-24 14:20 | Outpatient (CLI) | payer MEDICARE, BC ==
--- NOTE | 2024-06-26 09:40 | Mammography Report ---
BILATERAL DIGITAL DIAGNOSTIC MAMMOGRAM 3D/2D: 06/24/2024 CLINICAL: Patient returns for a 6 month follow up of the right breast, due for bilateral exam. Comparison is made to exams dated: 02/07/2023 mammogram, 01/22/2023 mammogram, 12/31/2022 mammogram, 07/27 ultrasound, 08/22/2020 mammogram, and 02/07/2023 ultrasound biopsy - [facility]. Both breasts are heterogeneously dense, which may obscure small masses (category c / 51-75% glandular tissue). There is a stable mass in the right breast at 2 o'clock anterior depth. This correlates with the bio psy. No other significant masses, calcifications, or other findings are seen in either breast. IMPRESSION: INCOMPLETE: NEEDS ADDITIONAL IMAGING EVALUATION The stable mass in the right breast is indeterminate. A targeted ultrasound is recommended and will immediately follow. Based on the Tyrer Cuzick model (a risk assessment model) the patient's lifetime risk is 5.0% and her 10 year risk is 4.1%. According to the ACR, ACS, and NCCN guidelines, an annual breast MRI exam amos g with mammogram is recommended if the patient's lifetime risk is 20% or greater. This exam was interpreted at Station ID: [id number]. NOTE: For mammograms, a report in lay terms will be sent to the patient. Approximately 15% of breast malignancies will not be visualized mammographically. In the management of a palpable breast mass, a negative mammogram must not discourage biopsy of a clinically suspicious lesion. Electronically Signed By: Beto Brothers M.D. slc/:06/25/2024 12:59:21 ACR BI-RADS Category 0: Incomplete 3340F PARENCHYMAL PATTERN: (D) - The breast(s) demonstrate(s) heterogeneously dense fibroglandular parenchy ma. BI-RADS CATEGORY: (0) - 0 Ultrasound [id number] Immediate follow-up LATERALITY: (B)
--- NOTE | 2024-06-26 09:40 | Ultrasound Report ---
LIMITED ULTRASOUND OF RIGHT BREAST: 06/24/2024 CLINICAL: Patient returns for a 6 month follow up of the right breast. Comparison is made to exams dated: 08/19/2023 ultrasound, 02/07/2023 ultrasound biopsy, 02/07/2023 mamm ogram, 01/22/2023 ultrasound, 01/22/2023 mammogram, and 12/31/2022 mammogram - [facility]. Color flow ultrasound of the right breast 2 o'clock region was performed. Robert scale images of the r eal-time examination were reviewed. There is a stable 0.7 cm x 0.5 cm x 0.5 cm oval mass in the right breast at 2 o'clock middle depth 4 cm from the nipple. This oval mass is hypoechoic. This correlates with mammography findings and the previous biopsy. Color flow imaging demonstrates that there is vascularity present. Adjacent simple appearing cyst is similar and adjacent biopsy clip. IMPRESSION: PROBABLY BENIGN The stable 0.7 cm mass in the right breast is probably benign. A follow-up mammogram and an ultrasound in 12 months is recommended to demonstrate continued stabilit y. Exam findings were conveyed to the patient. This exam was interpreted at Station ID: [id number]. Electronically Signed By: Beto Brothers M.D. slc/:06/24/2024 15:37:02 Ultrasound BI-RADS: 3 Probably benign BI-RADS CATEGORY: (3) - 3 Mammo and US [id number] 12 month follow-up LATERALITY: (B)
== END 2024-06-24 14:21 | disposition home or self-care (01) ==
LOC: DI 14:20
PROVIDERS: ATTEND Nurse Practitioner Family
DX: N63.12 Unspecified lump in the right breast, upper inner quadrant (principal); R92.333 Mammographic heterogeneous density, bilateral breasts

== ENCOUNTER 2024-06-30 08:00 | Outpatient (CLI) | payer MEDICARE, BC | END 2024-06-30 23:59 | disposition home or self-care (01) | LOC: PC 08:00 | PROVIDERS: ATTEND Nurse Practitioner Adult Health | DX: Z51.5 Encounter for palliative care (principal); C91.10 Chronic lymphocytic leukemia of B-cell type not having achieved remission; R53.83 Other fatigue; Z79.899 Other long term (current) drug therapy; C56.9 Malignant neoplasm of unspecified ovary; R23.2 Flushing; R61 Generalized hyperhidrosis; F32.1 Major depressive disorder, single episode, moderate; M25.562 Pain in left knee; M25.462 Effusion, left knee; G25.81 Restless legs syndrome; Z79.891 Long term (current) use of opiate analgesic; Z71.89 Other specified counseling | CPT/HCPCS: 99215 ==

== ENCOUNTER 2024-06-30 14:08 | Outpatient (CLI) | payer MEDICARE, BC | END 2024-06-30 14:09 | disposition home or self-care (01) | LOC: LAB 14:08 | DX: C56.9 Malignant neoplasm of unspecified ovary (principal) ==

== ENCOUNTER 2024-07-02 15:11 | Outpatient (CLI) | payer MEDICARE, BC ==
[2024-07-02] MEDS ORDERED: DIATRIZOATE MEGLU/DIATRIZO SOD 30 ML BOTTLE PO ONE (15:14)
[2024-07-02] MEDS ORDERED: iohexoL-300 100 ML VIAL ONE (15:14)
[2024-07-02] MEDS: DIATRIZOATE MEGLU/DIATRIZO SOD 30 ML BOTTLE PO ONE (16:57)
[2024-07-02] MEDS: iohexoL-300 100 ML VIAL IVP ONE (16:58)
--- NOTE | 2024-07-03 21:17 | CT Report ---
PROCEDURE: Chest W INDICATIONS: OVARIAN CA CONTRAST: OMNI 300 100ML TECHNIQUE: After the administration of intravenous contrast, a CT scan of the chest was performed. Images were recorded and evaluated at appropriate window settings. Reformats: axial MIP of the chest, coronal and sagittal. For radiation dose reduction, the following was used: automated exposure control, adjustme nt of mA and/or kV according to patient size. COMPARISON: CT 02/16/2021. FINDINGS: Image quality: Diagnostic. Chest wall and lower neck: No thyroid nodule which requires sonographic follow up. No breast mass. No axillary or supraclavicular adenopathy by size. Lungs and pleura: No consolidation. No pleural effusions. No pneumothorax. Stable 2 mm solid nodule, right upper lobe (series 4, image 22). A few right upper lobe centrilobular groundglass nodules, pro bably post infectious/inflammatory. Calcified granuloma. Mediastinum: Heart size is normal. No pericardial effusion. No large vessel abnormality. No mediastin al adenopathy by size criteria. Marked LAD calcifications. Bones: No aggressive osseous abnormality. Upper Abdomen: Separately dictated. IMPRESSION: No definite evidence of thoracic metastatic disease. A few groundglass nodules in the right upper lobe, probably post infectious/inflammatory. Attention o n follow-up. Marked LAD calcifications. Reviewed by: Corey Salinas MD on 07/03/2024 9:16 PM PDT Approved by: Corey Salinas MD on 07/03/2024 9:16 PM PDT Station ID: [id number]
--- NOTE | 2024-07-03 21:29 | CT Report ---
PROCEDURE: Abdomen/Pelvis W INDICATIONS: OVARIAN CA CONTRAST: OMNI 300 100ML TECHNIQUE: After the administration of intravenous contrast, a CT scan of the abdomen and pelvis was performed. Images were recorded and evaluated at appropriate window settings. Reformats: coronal and sagittal. F or radiation dose reduction, the following was used: automated exposure control, adjustment of mA and /or kV according to patient size. COMPARISON: CT 03/05/2024, 11/08/2023 FINDINGS: Image quality: Diagnostic. Lower chest: Separately dictated. Liver: Segment 5 lipoma. Subcentimeter hypoattenuating lesion in segment 3, too small to catheterize by CT but stable from prior. Hepatic steatosis is likely. Gallbladder: No radiopaque stones or wall thickening. Biliary tree: No intrahepatic or extrahepatic dilation, accounting for age. Spleen: Spleen measures 10.9 x 4.9 x 12.9 cm. Pancreas: No pancreatic ductal dilation. Adrenals: No adrenal nodule. Kidneys and ureters: No hydronephrosis. No renal cystic lesion which requires follow up. No solid mas s. Stomach, bowel and peritoneum: No gastric or small bowel dilation. No abnormal wall thickening. Small amount of free fluid in the pelvis.. Punctate soft tissue in the omentum, similar to prior (series 11, image 81). 8 mm nodularity along the peritoneal reflection (series 7, image 112). Lymph nodes: No central or retroperitoneal adenopathy. Vessels: Saccular aortic aneurysm measuring 2.7 x 1.8 cm, unchanged from prior. Patent portal vein. PELVIS Reproductive organs: Hysterectomy. Bladder: No abnormal wall thickening, accounting for underdistention. Pelvic lymph nodes: No pelvic adenopathy by size criteria. Bones: No aggressive osseous abnormality. Degenerative changes of the spine. Grade 1 anterolisthesis of L4 on L5 secondary to facet arthrosis. Other: Right inguinal hernia containing nonobstructed small bowel. IMPRESSION: Hysterectomy and oophorectomy. Mild soft tissue in the omentum, suggestive of peritoneal carcinomatosis. This is stable from prior. Additionally, there is a 8 mm nodule along the peritoneal reflection. Close attention on follow-up. Stable saccular aortic aneurysm. Right inguinal hernia containing a knuckle of nonobstructed small bowel. Reviewed by: Corey Salinas MD on 07/03/2024 9:28 PM PDT Approved by: Corey Salinas MD on 07/03/2024 9:28 PM PDT Station ID: [id number]
== END 2024-07-02 15:12 | disposition home or self-care (01) ==
LOC: DI 15:11
PROVIDERS: ATTEND Obstetrics & Gynecology Gynecologic Oncology
DX: C56.9 Malignant neoplasm of unspecified ovary (principal); R91.8 Other nonspecific abnormal finding of lung field; I25.10 Atherosclerotic heart disease of native coronary artery without angina pectoris; K40.90 Unilateral inguinal hernia, without obstruction or gangrene, not specified as recurrent; I71.9 Aortic aneurysm of unspecified site, without rupture
CPT/HCPCS: 71260; 74177; Q9963; Q9967